=== PATIENT | female | born 1980 | race Caucasian/White ===

== ENCOUNTER 2017-11-10 06:26 | Inpatient (IN) ==
[2017-11-10] MEDS ORDERED: LIDOCAINE 1% (10mg/ml) 2mL INJ PF SDV ID PRN (06:40)
[2017-11-10] MEDS ORDERED: OXYTOCIN DRIP 30 UNIT/500 ML ML IV PRN (06:40)
[2017-11-10] MEDS ORDERED: METHYLERGONOVINE 0.2 MG/ML INJECTION IM PRN (06:40)
[2017-11-10] MEDS ORDERED: CARBOPROST 250 MCG/ML INJECTION IM PRN (06:40)
[2017-11-10] MEDS ORDERED: D5LR 1,000 ML IV PRN (06:40)
[2017-11-10] MEDS ORDERED: ACETAMINOPHEN 500 MG TABLET PO PRN ×2 (06:40→16:46)
[2017-11-10] MEDS ORDERED: CALCIUM CARBONATE Chewable 500mg TABLET PO PRN ×2 (06:40→16:46)
[2017-11-10] MEDS ORDERED: MAG-AL + SIM ORAL LIQUID 30ml PO PRN ×2 (06:40→16:46)
[2017-11-10] MEDS ORDERED: SALINE FLUSH 10ml SYRINGE IV PRN (06:40)
--- OUTSIDE RECORDS SUMMARY | 2017-11-10 06:42 | External Medical Summary | Continuity of Care Document ---
:1980 Author Organization [facility] Address [address] [place], [place] [id number] Phone Support Name Relationship Address Phone Manuel Sam spouse [address] [facility] [phone] [place] [address] Allergies, Adverse Reactions, Alerts Substance Reaction Severity Status No Known Drug Allergies Unknown Active Medications Medication Instructions Dosage Effective Dates Status Comments (start - stop) ONE DAILY take 1 by Oral route - Active (unknown strength) every day Problems Condition Effective Dates (start - stop) Clinical Status Follow-Up, Routine - Supervision of elderly multigravida, - third trimester Maternal care for oth - abnormality and damage, unsp 34 weeks gestation of - Left Breast Lump, Axillary Tail - Supervision of elderly multigravida, - third trimester Encounter for suprvsn of normal - , third trimester 30 weeks gestation of - Supervision of elderly multigravida, - first trimester Pap Smear Screening, Cervix - Encounter for suprvsn of normal - , first trimester 14 weeks gestation of - Supervision of elderly multigravida, - second trimester 19 weeks gestation of - Supervision of elderly multigravida, - second trimester 24 weeks gestation of - Supervision of elderly multigravida, - second trimester Encounter for suprvsn of normal - , second trimester 26 weeks gestation of - Supervision of elderly multigravida, - second trimester 19 weeks gestation of - Supervision of elderly multigravida, - second trimester Encounter for suprvsn of normal - , second trimester 18 weeks gestation of - Supervision of elderly multigravida, - third trimester Maternal care for oth - abnormality and damage, unsp 34 weeks gestation of - Supervision of elderly multigravida, - third trimester Maternal care for oth - abnormality and damage, unsp 35 weeks gestation of - Supervision of elderly multigravida, - third trimester Maternal care for oth - abnormality and damage, unsp 33 weeks gestation of - Supervision of elderly multigravida, - third trimester Maternal care for oth - abnormality and damage, unsp 33 weeks gestation of - Supervision of elderly multigravida, - third trimester 36 weeks gestation of - Supervision of elderly multigravida, - third trimester Maternal care for oth - abnormality and damage, unsp 35 weeks gestation of - Encounter for test, result - positive Encounter for suprvsn of normal - , third trimester 36 weeks gestation of - History of chlamydia infection Active Procedures Procedure Date OB Visit No Charge Results Test Name Date and Time Measure Units Reference Range Abnormal Flag Comments Unknown Advance Directives Directive Yes / No Effective Date File Name Unknown Encounters Encounter Practice Location Reason(s) Diagnoses Date Provider Care Team Description For Visit Members Danika [place] Supervision of Doe In Womens elderly 2-201 [facility] [place], multigravida, 8 700 [address] third [email or web address] Medical 1522, weeks gestation [facility], of [place], 120, [id number], [place], tel:[phone] , [place]. tel:[phone] Danika [place] Encounter for Aug-0 Doe In Womens Ultrasound suprvsn of normal 2-201 [facility] [place], , third 8 700 [address] [email or web address] weeks Medical 1522, gestation of [facility], Jin [place], 120, [id number], [place], tel:[phone] , [place]. tel:[phone] Danika [place] Supervision of Sep-2 Doe In Womens elderly 5-201 [facility] [place], multigravida, 8 700 [address] third Medical 1522, trimesterMaternal [facility], care for oth Jin [place], abnormality 120, [id number], and [place], [place] unsp35 weeks [place], tel:[phone] gestation of [id number] , [place]. tel: [phone] Danika [place] Supervision of Sep-2 Doe In Womens Ultrasound elderly 5-201 [facility] [place], multigravida, 8 700 [address] third Medical 1522, trimesterMaternal [facility], care for oth [place], abnormality 120, [id number], and [place], [place] unsp35 weeks [place], tel:[phone] gestation of [phone] [id number] , [place]. tel: [phone] Danika [place] Supervision of Sep-1 Doe In Womens elderly -201 [facility] [place], multigravida, 8 700 [address] third Medical 1522, trimesterMaternal [facility], care for oth [place], abnormality 120, [id number], and [place], [place] unsp34 weeks [place], tel:[phone] gestation of [phone] , [place]. tel: [phone] Danika [place] Supervision of Sep-1 Doe In Womens Ultrasound elderly 9-201 [facility] [place], multigravida, 8 700 [address] third Medical 1522, trimesterMaternal [facility], care for oth [place], abnormality 120, [id number], and [place], [place] unsp34 weeks [place], tel:[phone] gestation of [phone] [id number] , [place]. tel: [phone] Danika [place] Supervision of Sav-0 Doe In Womens elderly 9-201 [facility], multigravida, 8 700 PO Box third Medical 1522, [facility] [place], abnormality 120, , and [place], [place] unsp33 weeks [place], tel:[phone] gestation of [phone] , [place]. tel: [phone] Danika [place] Supervision of Sav-0 Doe In Womens Ultrasound elderly 9-201 [facility], multigravida, 8 700 PO Box third Medical 1522, [facility] [place], abnormality 120, , and [place], [place] unsp33 weeks [place], tel:[phone] gestation of [phone] , [place]. tel: [phone] Danika [place] Left Breast Lump, Richard-2 Doe In Womens Axillary 1-201 [facility], TailSupervision [address] [facility] Medical 1522, [facility] [place], trimesterEncounte 120, [id number], r for suprreymundo of [place], [place] normal , [place], tel:[phone] third [id number] [phone] [id number] weeks gestation , [place]. of tel: [phone] Danika [place] Supervision of May-2 Doe In Womens elderly 2-201 [facility], multigravida, 8 700 PO Box second Medical 1522, trimesterEncounte [facility], r for suprvsn of [place], normal , 120, [id number], second [place], [email or web address] weeks [place], tel:[phone] gestation of [phone] [id number] , [place]. tel: [phone] Danika [place] Supervision of May-0 Doe In Womens elderly 8-201 [facility] [place], multigravida, 8 700 PO Box second Medical 1522, [email or web address] weeks [facility], gestation of Jin Woodard, 120, , [place], tel:[phone] , [place]. tel:[phone] Danika [place] Supervision of Apr-0 Doe In Womens elderly 5-201 [facility] [place], multigravida, 8 700 PO Box second Medical 1522, [email or web address] weeks [facility], gestation of Jin [place], 120, , [place], tel:[phone] , [place]. tel:[phone] Danika [place] Supervision of Apr-0 Doe In Womens Ultrasound elderly 5- [facility] [place], multigravida, 8 700 PO Box second Medical 1522, [email or web address] weeks [facility], gestation of Jin [place], 120, , [place], tel:[phone] , [place]. tel:[phone] Danika [place] Supervision of Mar-2 Doe In Womens elderly 7-201 [facility] [place], multigravida, 8 700 PO Box second Medical 1522, trimesterEncounte [facility], r for suprvsn of [place], normal , 120, , second [place], [place] [email or web address] weeks [place], tel:[phone] gestation of [phone] , [place]. tel: [phone] Danika [place] Supervision of Feb-2 Doe In Womens elderly 6-201 [facility] [place], multigravida, 8 700 PO Box first Medical 1522, trimesterPap [facility], Smear Screening, Jin [place], CervixEncounter 120, , for suprvsn of [place], [place] normal , [place], tel:[phone] first [email or web address] [phone] [id number] weeks gestation , [place]. of tel:[phone] Danika [place] Sav-2 Doe In Womens Follow-Up, [facility] [place], Routine 6 700 PO Box Medical 1522, [facility], [place], 120, [id number], [place], [place], tel:[phone] , [place]. tel: [phone] Danika [place] Apr-2 Doe Referring In Womens 1-201 [facility] Provider: Health [place], 6 700 [facility] PO Box Medical Doe L, 1522, [place] [id number] [address] Trav, [facility] [place], 120, [place] [id number], [place], [facility] 120, [place], [place], tel:[phone] [place], , [place]. [id number]. tel: tel: [phone] Associates [facility] Mar-0 Doe In Womens 3-201 [facility] [place], 6 700 PO Box Medical 1522, [place] [address] Trav, [facility] [place], 120, [id number], [place], [place], tel:[phone] , [place]. tel: [phone] Danika [place] History of Feb-0 Doe In Womens chlamydia 1-201 [facility] [place], infection 6 700 PO Box Medical 1522, [place] [address] Trav, [facility] [place], 120, [id number], [place], [place], tel:[phone] , [place]. tel: [phone] Danika [place] Dec-2 Doe In Womens 1-201 [facility] [place], 5 700 PO Box Medical 1522, [place] [address], [facility] [place], 120, [id number], [facility] [place], tel:[phone] , [place]. tel: [phone] Danika [place] Encounter for Nov-2 Doe In Womens test, 5-201 [facility] [place], result positive 5 700 PO Box Medical 1522, [place] [address] Trav, [facility] [place], 120, [id number], [place], tel:[phone] , [place]. tel: [phone] Danika [place] Richard-2 Kerr In Womens 9-201 [facility] [place], 1 700 PO Box Medical 1522, [place] [address] Trav [facility], 120, [id number], [facility] [place], tel:[phone] [id number] , [place]. tel: [phone] Family History Family Member Diagnosis Age At Onset No family history of Stroke No family history of Colon Cancer No family history of Osteoporosis Paternal Grandfather Diabetes mellitus No family history of Kidney Disease No family history of Epilepsy No family history of Venous Thrombosis Maternal Grandmother Cardiovascular Disease No family history of Ovarian Cancer Cousin Breast Cancer No family history of Lung Disease Maternal Grandmother Hypertension Mother Thyroid Cancer No family history of Pulmonary Embolism No family history of Uterine Cancer Immunizations Vaccine Date Status Comments Tdap completed Source: New Immunization Record Influenza, injectable, completed Source: New Immunization Record quadrivalent, preservative free, 3 yrs or older Payers Payer name Insurance type Covered libertarian ID Authorization(s) [employer] [place] [employer] - Medicaid [place] [id number] [employer] [place] [employer] - Medicaid [place] [id number] [employer] [place] [employer] - Medicaid [place] [id number] Social History Type Description Quantity Date Captured Alcohol Use Details No Caffeine Use Details Unknown Tobacco Use Status Unknown Smoking Status Never smoker Vital Signs Date / Height Weight BMI Pulse Blood Temperature Respiratory Body Head BMI Time: Rate Pressure Rate Surface Circumference percentile Area 153.10 27.1 lbs 2 mm[Hg] 1:32 kg/m PM eter (2) Chief Complaint And Reason For Visit Unknown Chief Complaint And Reason For Visit Reason For Referral Reason For Referral Unknown Plan Of Care Date Type Action Status Appointment Odalis Sam BOOKED Appointment Odalis Sam BOOKED Appointment Odalis Sam BOOKED Appointment Odalis Sam BOOKED Appointment Odalis Sam BOOKED Future Order: Radiology Order OB Detailed Complete Ultrasound Ordered ([id number]) Future Order: Radiology Order Biophysical Profile without NST Ordered ([id number]) Future Order: Radiology Order Ultrasound OB Follow-up ([id number]) Ordered Future Order: Radiology Order Biophysical Profile without NST Ordered ([id number]) Future Order: Radiology Order Biophysical Profile without NST Ordered ([id number]) Future Order: Lab Order Pap Smear With HPV Reflex If ASCUS Ordered ([id number]) Future Order: Radiology Order Biophysical Profile without NST Ordered ([id number]) Date Type Problem Goal Intervention Status Start Date Unknown. History Of Present Illness Encounter Date Complaint History Of Present Illness This patient has no known history of present illness Functional Status Encounter Date Functional Assessment Cognitive Assessment Unknown Medications Administered Medication Instructions Dosage Effective Dates (start - stop) Status Comments Drug Treatment Unknown Instructions Date Instruction Additional Information HIV and other routine tests risk factors identified by history anticipated course of care nutrition and weight gain counseling, special diet toxoplasmosis precautions (cats / raw meat) sexual activity exercise indications for ultrasound influenza vaccine environmental / work hazards travel tobacco (ask, advise, assess, assist and arrange) alcohol illicit / recreational drugs use of any medications (including supplements, vitamins, herbs, OTC drugs) smoking counseling domestic violence seat belt use childbirth classes / hospital facilities hospital registration genetic testing Zika virus assessment & precautions Giving encouragement to exercise Related to Body mass index 25.0-25.9 environmental / work hazards travel tobacco (ask, advise, assess, assist and arrange) alcohol illicit / recreational drugs use of any medications (including supplements, vitamins, herbs, OTC drugs) smoking counseling domestic violence seat belt use childbirth classes / hospital facilities hospital registration genetic testing new ob handbook HIV and other routine tests risk factors identified by history anticipated course of care nutrition and weight gain counseling, special diet toxoplasmosis precautions (cats / raw meat) sexual activity exercise indications for ultrasound influenza vaccine
--- OUTSIDE RECORDS SUMMARY | 2017-11-10 06:42 | External Medical Summary | Continuity of Care Document ---
:1980 Author Organization [facility] Address [address] [place], [place] [id number] Phone Support Name Relationship Address Phone Manuel Sam spouse [address] [facility] [phone] [place] [address] Allergies, Adverse Reactions, Alerts Substance Reaction Severity Status No Known Drug Allergies Unknown Active Medications Medication Instructions Dosage Effective Dates Status Comments (start - stop) ONE DAILY take 1 by Oral route - Active (unknown strength) every day Problems Condition Effective Dates (start - stop) Clinical Status Follow-Up, Routine - Maternal care for oth - abnormality and damage, unsp 35 weeks gestation of - Supervision of elderly multigravida, - third trimester Left Breast Lump, Axillary Tail - Supervision [...] for oth - abnormality and damage, unsp 37 weeks gestation of - Supervision of elderly multigravida, - third trimester Maternal care for oth - abnormality and damage, unsp 37 weeks gestation of - Supervision of elderly [...] Measure Units Reference Range Abnormal Flag Comments Panel Description: Strep Gp B Culture Strep Gp B Negative Negative Centers for Disease Control Culture 16:09:00 and Prevention (CDC) and [place] Congressof Obstetricians and Gynecologists (ACOG) guidelines for prevention ofperinatal group B streptococcal (GBS) disease specify co-collection ofa vaginal and rectal swab specimen to maximize sensitivity of GBSdetection. Per the CDC and ACOG, swabbing both the lower vagina andrectum substantially increases the yield of detection compared withsampling the vagina alone. .Penicillin G, ampicillin, or cefazolin are indicated for intrapartumprophylaxis of GBS colonization. Reflex susceptibilitytesting should be performed prior to use of clindamycin only on GBSisolates from penicillin-allergic women who are considered a high riskfor anaphylaxis. Treatment with vancomycin without additional testingis warranted if resistance to clindamycin is noted. Advance Directives Directive Yes / No Effective Date File Name Unknown Encounters Encounter Practice Location Reason(s) Diagnoses Date Provider Care Team Description For Visit Members Danika [place] Supervision of Oct-0 Doe Referring In Womens elderly Gale. Provider: amie Leonardoavinicole, 8 700 Gale [address] third Medical Doe L, 1522, [facility] [address] [place] [address], [facility] Jin Woodard, abnormality 120, [place] , and Billy haley [facility] 120, [place] unsp37 weeks Billy KAPLAN, tel:[phone] gestation of [phone] [place], , [place]. [id number]. tel: tel: [phone] Danika [place] Supervision of Aug-0 Doe In Womens Ultrasound elderly 9- Gale. amie Leonardoavida, 8 700 PO Box third Medical 1522, trimesterMaternal [facility], [facility] Jin Woodard, abnormality 120, [id number], and Billy haley, unsp37 weeks EUSEBIO, tel:[phone] gestation of [phone] , [place]. tel: [phone] Danika [place] Supervision of Aug-0 Doe In Womens elderly 2- Gale. margarito Leonardogravida, 8 700 PO Box third [email or web address] Medical 1522, weeks gestation [facility], of Jin Woodard, 120, [id number], [place], tel:[phone] , [place]. tel:[phone] Danika [place] Encounter for Aug-0 Doe In Womens Ultrasound suprvsn of normal 2-201 Gale. Health PA, , third 8 700 PO Box [email or web address] weeks Medical 1522, gestation of [facility], Jin Woodard, 120, , [place], tel:[phone] , [place]. tel: [phone] Danika [place] Maternal care for Sav-2 Doe In Womens oth 5-201 Gale. Health PA, abnormality and 8 700 PO Box damage, unsp35 Medical 1522, weeks gestation [facility], of Jin Woodard, pregnancySupervis 120, [id number], ion of elderly [place]rav[place], [place], tel:[phone] third trimester [phone] , [place]. tel: [phone] Danika [place] Supervision of Sav-2 Doe In Womens Ultrasound elderly 5-201 Gale. Health PA, multigravida, 8 700 PO Box third Medical 1522, trimesterMaternal [facility], care for oth Jin Woodard, abnormality 120, , and Billy haley, [place] unsp35 weeks [place], tel:[phone] gestation of [phone] , [place]. tel: [phone] Danika [place] Supervision of Sav-1 Doe In Womens elderly 9-201 Gale. Health PA, multigravida, 8 700 PO Box third Medical 1522, trimesterMaternal [facility], care for oth Jin Woodard, abnormality 120, , and Billy haley, [place] unsp34 weeks [place], tel:[phone] gestation of [id number] , [place]. tel: [phone] Danika [place] Supervision of Sav-1 Doe In Womens Ultrasound elderly 9-201 Gale. Health PA, multigravida, 8 700 PO Box third Medical 1522, [facility]Maternal [facility], [facility] for ot Jin Woodard, abnormality 120, [id number], and [place] haley, [place] unsp34 weeks [place], tel:[phone] gestation of [phone] , [place]. tel: [phone] Danika [place] Supervision of Sav-0 Doe In Womens elderly 9-201 Gale. Health PA, multigravida, 8 700 PO Box [facility] 1522, [facility] care for ot Jin Woodard, abnormality 120, [id number], and damageBilly, [place] unsp33 weeks [place], tel:[phone] gestation of [phone] , [place]. tel: [phone] Danika [place] Supervision of Sav-0 Doe In Womens Ultrasound elderly 9-201 Gale. Health PA, multigravida, 8 700 PO Box third Medical 1522, [facility], care for ot Jin Woodard, abnormality 120, , and Billy haley, [place] unsp33 weeks [place], tel:[phone] gestation of [phone] , [place]. tel: [phone] Danika [place] Left Breast Lump, Richard-2 Doe In Womens Axillary 1-201 Gale. Health PA, TailSupervision 8 700 PO Box of [facility] 1522, multigravida, [facility], [facility] Jin Woodard, trimesterEncounte 120, [id number], r for abiola of [place], [place] normal , [place], tel:[phone] third [id number] [phone] [id number] weeks gestation , [place]. of tel: [phone] Danika [place] Supervision of July-2 Doe In Womens elderly 2-201 Gale. Health PA, multigravida, 8 700 PO Box second Medical 1522, [facility], r for suprvsn of Jin Woodard, normal , 120, [id number], second [place], [place] [id number] weeks [place], tel:[phone] gestation of [phone] , [place]. tel: [phone] Danika [place] Supervision of May-0 Doe In Womens elderly 8-201 Gale. Health PA, multigravida, 8 700 PO Box second Medical 1522, [email or web address] weeks [facility], gestation of Jin Woodard, 120, , [place], tel:[phone] , [place]. tel:[phone] Danika [place] Supervision of Apr-0 Doe In Womens elderly 5-201 Gale. Health PA, multigravida, 8 700 PO Box second Medical 1522, [email or web address] weeks [facility], gestation of Jin Woodard, 120, , [place], tel:[phone] , [place]. tel:[phone] Danika [place] Supervision of Apr-0 Doe In Womens Ultrasound elderly 5-201 Gale. Health PA, multigravida, 8 700 PO Box second Medical 1522, [email or web address] weeks [facility], gestation of Jin Woodard, 120, , [place], tel:[phone] , [place]. tel:[phone] Danika [place] Supervision of May-2 Doe In Womens elderly 7-201 Gale. Health PA, multigravida, 8 700 PO Box second Medical 1522, trimesterEncounte [facility], for suprvsn of Jin Woodard, normal , 120, , second [place], [place] [id number] weeks [place], tel:[phone] gestation of [id number] , [place]. tel:[phone] Danika [place] Supervision of Fe-2 Deo In Womens elderly 6-201 Gale. Health PA, multigravida, 8 700 PO Box first Medical 1522, trimesterPap [facility], Smear Screening, Jin Woodard, CervixEncounter 120, , for suprvsn of [place], [place] normal , [place], tel:[phone] first [id number] [phone] [id number] weeks gestation , [place]. of tel:[phone] Danika [place] Sav-2 Doe In Womens Follow-Up, 8- Gale. Health PA, Routine 6 700 PO Box Medical 1522, [place] Dr Trav, [facility] [place], 120, [id number], [place], tel:[phone] , [place]. tel: [phone] Danika [place] Apr-2 Doe Referring In Womens 1-201 Gale. Provider: Health [facility], 6 700 Gale PO Box Medical Doe L, 1522, [place] [address], [facility] [place], 120, [place] [id number], Billy [facility] 120, [place], [place], tel:[phone] [place], , [place]. [id number]. tel: tel: [phone] Associates Billy Mar-0 Doe In Womens 3-201 Gale. Health CHICA, 6 700 PO Box Medical 1522, [place] Dr Trav, [facility] [place], 120, [id number], [place], [place], tel:[phone] , [place]. tel: [phone] Danika [place] History of Feb-0 Doe In Womens chlamydia 1-201 Gale. Health PA, infection 6 700 PO [place] [facility] 1522, [place] Dr Trav, [facility] [place], 120, [id number], [place], tel:+ [phone] , [place]. tel: [phone] Danika [place] Dec-2 Doe In Womens 1-201 Gale. Health [facility]ICA, 5 700 PO [place] [facility] 1522, [place] Dr Trav, [facility] [place], 120, [id number], [place], tel:+ [phone] , [place]. tel: [phone] Danika [place] Encounter for Nov-2 Doe In Womens test, 5- Gale. Health PA, result positive 5 700 PO Box Medical 1522, [place] [address] Trav, [facility] [place], 120, [id number], [place], tel:[phone] , [place]. tel: [phone] Danika [place] Richard-2 Kerr In Womens 9-201 Daily. [facility], 1 700 [facility] [address] [address] Trav, [facility], 120, [id number], [place], tel:[phone] , [place]. tel: [phone] Family History Family Member Diagnosis Age At [...] Comments Tdap completed Source: New Immunization Record Tdap completed Source: New Immunization Record Influenza, injectable, completed Source: New Immunization Record quadrivalent, preservative free, 3 yrs or older Payers Payer name Insurance type Covered green party ID Authorization(s) [employer] [place] [employer] - [place] [id number] [employer] - Medicaid [place] [id number] [employer] - Medicaid [place] [id number] [employer] - Medicaid [place] [id number] Social History Type Description Quantity Date Captured Alcohol Use Details No Caffeine Use Details Unknown Tobacco Use Status Unknown Smoking Status Never smoker Vital Signs Date / Height Weight BMI Pulse Blood Temperature Respiratory Body Head BMI Time: Rate Pressure Rate Surface Circumference percentile Area Unknown Chief Complaint And Reason For Visit Unknown Chief Complaint And Reason For Visit Reason For Referral Reason For Referral Unknown Plan Of Care Date Type Action Status Appointment Odalis Sam BOOKED Appointment Odalis Sam BOOKED Appointment Odalis Sam BOOKED Appointment Odalis Sam BOOKED Future Order: Radiology Order OB Detailed Complete Ultrasound Ordered ([id number]) Future Order: Radiology Order Biophysical Profile without NST Ordered ([id number]) Future Order: Radiology Order Ultrasound OB Follow-up ([id number]) Ordered Future Order: Radiology Order Biophysical Profile without NST Ordered ([id number]) Future Order: Radiology Order Ultrasound OB Follow-up ([id number]) Ordered Future Order: Radiology Order Biophysical Profile without NST Ordered ([id number]) Future Order: Radiology Order Biophysical Profile without NST Ordered ([id number]) Future Order: Lab Order Pap Smear With HPV Reflex If ASCUS Ordered ([id number]) Future Order: Radiology Order Biophysical Profile without NST Ordered ([id number]) Date Type Problem Goal Intervention Status Start [...]
--- OUTSIDE RECORDS SUMMARY | 2017-11-10 06:42 | External Medical Summary | Continuity of Care Document ---
:1980 Author Organization [facility] Address [address] [place], [place] [id number] Phone Support Name Relationship Address Phone Manuel Sam spouse [address] [facility] [phone] [place] [address] Allergies, Adverse Reactions, Alerts Substance Reaction Severity [...] of chlamydia infection Active Procedures Procedure Date biophys prfl w/o nstress test Results Test Name Date and Time Measure Units Reference Range Abnormal Flag Comments Unknown Advance Directives Directive Yes / No Effective Date File Name Unknown Encounters Encounter Practice Location Reason(s) Diagnoses Date Provider Care Team Description For Visit Members Associates Billy Supervision of Doe In Womens elderly 2-201 Gale. [facility] PA, multigravida, 8 700 PO Box third Medical 1522, weeks gestation [facility], of Jin Woodard [place], 120, [id number], [place], tel:[phone] , [place]. tel:[phone] Danika [place] Encounter for Aug-0 Doe In Womens Ultrasound suprvsn of normal 2-201 Gale. Health PA, , third 8 700 PO Box [email or web address] weeks Medical 1522, gestation of [facility], Jin Woodard, 120, [id number], [place], tel:[phone] , [place]. tel:[phone] Danika [place] Supervision of Sep-2 Doe In Womens elderly 5-201 Gale. Health PA, multigravida, 8 700 PO Box third Medical 1522, trimesterMaternal [facility], care for oth Jin Woodard, abnormality 120, [id number], and [place] haley, [place] unsp35 weeks [place], tel:[phone] gestation of [phone] , [place]. tel: [phone] Danika [place] Supervision of Sep-2 Doe In Womens Ultrasound elderly 5- Gale. Health PA, multigravida, 8 700 PO Box third Medical 1522, trimesterMaternal [facility], care for oth Jin Woodard, abnormality 120, [id number], and [place] h[place], [place] unsp35 weeks [place], tel:[phone] gestation of [phone] , [place]. tel: [phone] Danika [place] Supervision of Sep-1 Doe In Womens elderly - Gale. Health PA, multigravida, 8 700 PO Box third Medical 1522, trimesterMaternal [facility], care for oth Jin Woodard, abnormality 120, [id number], and [place] h[place], [place] unsp34 weeks [place], tel:[phone] gestation of [phone] , [place]. tel:[phone] Danika [place] Supervision of Sep-1 Doe In Womens Ultrasound elderly -201 Gale. Health PA, multigravida, 8 700 PO Box third Medical 1522, trimesterMaternal [facility], care for oth Jin Woodard, abnormality 120, [id number], and [place] h[place], [place] unsp34 weeks [place], tel:[phone] gestation of [id number] , [place]. tel: [phone] Danika [place] Supervision of Sav-0 Doe In Womens elderly 9-201 Gale. Health CHICA, multigravida, 8 700 PO Box third Medical 1522, trimesterMaternal [facility], care for oth Jin Woodard, abnormality 120, , and [place] haley, [place] unsp33 weeks [place], tel:[phone] gestation of [id number] , [place]. tel: [phone] Danika [place] Supervision of Sav-0 Doe In Womens Ultrasound elderly 9- Gale. Health PA, multigravida, 8 700 PO Box third Medical 1522, [facility]naThe [facility], care for oth Jin Woodard, abnormality 120, , and [place] h[place], [place] unsp33 weeks [place], tel:[phone] gestation of [phone] [id number] , [place]. tel: [phone] Danika [place] Left Breast Lump, Richard-2 Doe In Womens Axillary 1-201 Agle. Health CHICA, TailSupervision 8 700 PO Box of [facility] Medical 1522, [facility], third Jin Woodard, trimesterEncounte 120, [id number], r for suprmichaeln of [place], [place] normal , [place], tel:[phone] third [id number] [phone] [id number] weeks gestation , [place]. of tel: [phone] Danika [place] Supervision of May-2 Doe In Womens elderly 2-201 Gale. Health CHICA, multigravida, 8 700 PO Box second Medical 1522, trimesterEncdoctors hospital [facility], r for suprvsn of Jin Woodard, normal , 120, [id number], second [place], [place] [id number] weeks [place], tel:[phone] gestation of [phone] [id number] , [place]. tel: [phone] Danika [place] Supervision of May-0 Doe In Womens elderly 8-201 Gale. Health PA, multigravida, 8 700 PO Box second Medical 1522, [email or web address] weeks [facility], gestation of Jin Woodard, 120, , [place], tel:[phone] , [place]. tel:[phone] Danika [place] Supervision of Apr-0 Doe In Womens elderly 5-201 Gale. Health PA, multigravida, 8 700 PO Box second Medical 1522, [email or web address] weeks [facility], gestation of Jin Woodard, 120, , [place], tel:[phone] , [place]. tel:[phone] Danika [place] Supervision of Apr-0 Doe In Womens Ultrasound elderly 5-201 Gale. Health PA, multigravida, 8 700 PO Box second Medical 1522, [email or web address] weeks [facility], gestation of Jin Woodard, 120, , [place], tel:[phone] , [place]. tel:[phone] Danika [place] Supervision of Mar-2 Doe In Womens elderly 7-201 Gale. Health PA, multigravida, 8 700 PO Box second Medical 1522, trimesterEncounte [facility], r for suprvsn of Jin Woodard, normal , 120, , second [place], [place] [id number] weeks [place], tel:[phone] gestation of [phone] [id number] , [place]. tel:[phone] Danika [place] Supervision of Feb-2 Doe In Womens elderly 6-201 Gale. Health PA, multigravida, 8 700 PO Box first Medical 1522, trimesterPap [facility], Smear Screening, Jin Woodard, CervixEncounter 120, , for suprvsn of [place], [place] normal , [place], tel:[phone] first [id number] [phone] [id number] weeks gestation , [place]. of tel:[phone] Danika [place] Sav-2 Doe In Womens Follow-Up, - Gale. Health PA, Routine 6 700 PO Box Medical 1522, [place] [address] Trav, [facility] [place], 120, [id number], [place], [place], tel: [phone] , [place]. tel: [phone] Danika [place] Apr-2 Doe Referring In Womens 1-201 Gale. Provider: Health [facility]ICA, 6 700 Gale PO Box Medical Doe L, 1522, [place] [address] [address] Trav, [facility] [place], 120, [place] [id number], Billy [facility] 120, [place], [place], tel: [phone] [place], , [place]. [id number]. tel: tel: [phone] Associates Billy Mar-0 Doe In Womens 3-201 Gale. Health PA, 6 700 PO Box Medical 1522, [address] [address] Trav, [facility] [place], 120, [id number], [place], [place], tel: [phone] , [place]. tel: [phone] Danika [place] History of Feb-0 Doe In Womens chlamydia 1-201 Gale. Health PA, infection 6 700 PO [place] [facility] 1522, [address] [address] Trav, [facility] [place], 120, [id number], [place], tel:+ [phone] , [place]. tel: [phone] Danika [place] Dec-2 Doe In Womens 1-201 Gale. Health PA, 5 700 PO Box Medical 1522, [address] [address] Trav, [facility] [place], 120, [id number], [place], tel:[phone] , [place]. tel: [phone] Danika [place] Encounter for Nov-2 Doe In Womens test, 5-201 Gale. Health PA, result positive 5 700 PO Box Medical 1522, [address] [address] Trav, [facility] [place], 120, [id number], [place], [place], tel:[phone] , [place]. tel: [phone] Danika [place] Richard-2 Kerr In Womens 9-201 Daily. Health PA, 1 700 PO Box Medical [address] [address]avi [address] [place], 120, [id number], [facility] [place], tel:[phone] [phone] , [place]. tel: [phone] Family History Family Member Diagnosis Age At [...] older Payers Payer name Insurance type Covered alliance party ID Authorization(s) [employer] - Medicaid [place] [id number] [employer] - Medicaid [place] [id number] [employer] - Medicaid [place] [id number] Social History Type Description Quantity Date Captured Unknown Vital Signs Date / Height Weight BMI [...] Odalis Sam BOOKED Future Order: Radiology Order Biophysical Profile without NST Ordered ([id number]) Future Order: Radiology Order OB Detailed Complete Ultrasound Ordered ([id number]) Future Order: Radiology Order Ultrasound OB Follow-up ([id number]) Ordered Future Order: Radiology Order Biophysical Profile without NST Ordered ([id number]) Future Order: Radiology Order Biophysical Profile without NST Ordered ([id number]) Future Order: Lab Order Pap Smear With HPV Reflex If ASCUS Ordered ([id number]) Future Order: Radiology Order Biophysical Profile without NST Ordered ([id number]) Date Type Problem Goal Intervention Status Start [...]
--- OUTSIDE RECORDS SUMMARY | 2017-11-10 06:42 | External Medical Summary | Continuity of Care Document ---
:1980 Author Organization [email or web address] Address [address] [place], [place] [id number] Phone Support Name Relationship Address Phone Manuel Sam spouse [address] [facility] [phone] [place] [address] Allergies, Adverse Reactions, Alerts Substance Reaction Severity [...] damage, unsp 33 weeks gestation of - Left Breast Lump, [...] - Encounter for test, result - positive History of chlamydia infection Active Procedures Procedure Date OB Visit No Charge Results Test Name Date and Time Measure Units Reference Range Abnormal Flag Comments Unknown Advance Directives Directive Yes / No Effective Date File Name Unknown Encounters Encounter Practice Location Reason(s) Diagnoses Date Provider Care Team Description For Visit Members Dainka Cervantes Supervision of Doe In Womens elderly [facility]. [facility], multigravida, 8 700 [address] [facility] 1522, [facility], care for oth Jin Woodard, abnormality 120, [id number], and damageBilly, [place] unsp35 weeks [place], tel:[phone] gestation of [id number] , [place]. tel:[phone] Danika Cervantes Supervision of Doe In Womens Ultrasound elderly 5- [facility], multigravida, 8 700 [address] third [facility] 1522, [facility], care for oth Jin Woodard, abnormality 120, [id number], and [place], [place] unsp35 weeks [place], tel:[phone] gestation of [phone] , [place]. tel: [phone] Associates Billy Supervision of Sav-1 Doe In Womens elderly [facility], multigravida, 8 700 [address] third Medical 1522, [facility] [place], care for oth Jin Woodard, abnormality 120, [id number], and [place] haley, [place] unsp34 weeks [place], tel:[phone] gestation of [id number] , [place]. tel: [phone] Associates [facility] Supervision of Sav-1 Doe In Womens Ultrasound elderly [facility], multigravida, 8 700 [address] third Medical 1522, [facility] [place], care for oth Jin Woodard, abnormality 120, [id number], and [place], [place] unsp34 weeks [place], tel:[phone] gestation of [phone] , [place]. tel: [phone] Danika [place] Supervision of Sav-0 Doe In Womens elderly [facility], multigravida, 8 700 PO [address] third Medical 1522, [facility] [place], care for oth Jin Woodard, abnormality 120, [id number], and [place] haley, [place] unsp33 weeks [place], tel:[phone] gestation of [phone] [phone] , [place]. tel: [phone] [facility] Supervision of Sav-0 Doe In Womens Ultrasound elderly [facility], multigravida, 8 700 [address] third Medical 1522, [facility] [place], care for oth Jin Woodard, abnormality 120, [id number], and [place] haley, [place] unsp33 weeks [place], tel:[phone] gestation of [id number] , [place]. tel: [phone] Danika Cerv[place] Left Breast Lump, Richard-2 Doe In Womens Axillary 1-201 [facility], TailSupervision 8 700 PO Box of elderly Medical 1522, multigravida, [facility], third Jin Woodard, trimesterEncounte 120, [id number], r for suprmichaeln of [place], [place] normal , [place], tel:[phone] third [id number] [phone] [id number] weeks gestation , [place]. of tel: [phone] Danika C[place] Supervision of May-2 Doe In Womens elderly 2-201 [facility], multigravida, 8 700 [address] second Medical 1522, trimesterEncounte [facility], r for suprvsn of Jin Woodard, normal , 120, [id number], second [place], [place] [id number] weeks [place], tel:[phone] gestation of [id number] , [place]. tel: [phone] Danika C[place] Supervision of May-0 Doe In Womens elderly 8-201 [facility], multigravida, 8 700 PO Box second Medical 1522, [email or web address] weeks [facility], gestation of Jin Woodard, 120, , [place], [place], tel:[phone] , [place]. tel: [phone] Danika C[place] Supervision of Apr-0 Doe In Womens elderly 5-201 [facility], multigravida, 8 700 PO Box second Medical 1522, [email or web address] weeks [facility], gestation of Jin Woodard, 120, [id number], [place], tel:[phone] , [place]. tel: [phone] Danika [place] Supervision of Apr-0 Doe In Womens Ultrasound elderly 5-201 [facility], multigravida, 8 700 PO Box second Medical 1522, weeks [facility], gestation of Jin Woodard, 120, [id number], [place], tel:[phone] , [place]. tel: [phone] Danika [place] Supervision of Mar-2 Doe In Womens elderly 7- [facility]. [facility], multigravida, 8 700 [address] Box second Medical 1522, trimesterEncounte [place], r for suprvsn of Jin Woodard, normal , 120, [id number], second [place], [id number] weeks [place], tel:[phone] gestation of [phone] [id number] , [place]. tel: [phone] Danika C[place] Supervision of Feb-2 Doe In Womens elderly 6- [facility], multigravida, 8 700 PO Box first Medical 1522, trimesterPap [facility], Smear Screening, , Jin KAPLAN, CervixEncounter 120, , for suprvsn of [place], normal , [place], tel:[phone] first [id number] [phone] weeks gestation , [place]. of tel: [phone] Danika C[place] Sav-2 Doe In Womens Follow-Up, [facility], Routine 6 700 PO [address] Medical [address], [address], [facility] EUSEBIO, 120, , [place], [place], tel:[phone] , [place]. tel: [phone] Danika C[place] Apr-2 Doe Referring In Womens 1- [facility]ale. Provider: Edilson COTO, 6 700 [place]ale PO Box Medical Doe L, 1522, [place], [facility] Dhiraj [place], 120, [place] , [place] [address], [place]SE[place], [place], tel:[phone] [place], , [place]. [id number]. tel: tel: [phone] Danika C[place] Mar-0 Doe In Womens 3-201 [place]. Edilson COTO, 6 700 PO [address] Medical 15[address], [address] [place], [facility] [place], 120, [id number], [place], [place], tel:[phone] , [place]. tel: [phone] Danika [place] History of Feb-0 Doe In Womens chlamydia 1-201 [facility], infection 6 700 PO Box Medical 15[address], [address], [facility] [place], 120, [id number], [facility] [place], tel:[phone] , [place]. tel:[phone] Associates Billy Dec-2 Doe In Womens 1-201 [facility], 5 700 PO [address] Medical 15[address], [address] [place], [facility] [place], 120, [id number], [facility] [place], tel:[phone] , [place]. tel:[phone] Associates Billy Encounter for Nov-2 Doe In Womens test, [facility], result positive 5 700 PO [address] Medical 15[address], [address], [facility] [place], 120, [id number], [facility] [place], tel:[phone] , [place]. tel: [phone] Danika C[place] Richard-2 Kerr In Womens 9-201 Daily. [facility], 1 700 PO Box Medical 15[address], [address], [facility] [place], 120, [id number], [facility] [place], tel:[phone] , [place]. tel:[phone] Family History Family Member Diagnosis Age At [...] Authorization(s) [employer] - Medicaid [place] [id number] [employer] - Medicaid [place] [id number] [employer] - Medicaid MC [id number] Social History Type Description Quantity Date Captured Alcohol Use Details No Caffeine Use Details Unknown Tobacco Use Status Unknown Smoking Status Never smoker Vital Signs Date / Height Weight BMI Pulse Blood Temperature Respiratory Body Head BMI Time: Rate Pressure Rate Surface Circumference percentile Area 156.60 27.7 107/80 -2018 lbs 4 mm[Hg] 10:26 kg/m AM eter (2) 0 10:21 kg/m AM eter (2) Chief Complaint And Reason For Visit Unknown Chief Complaint And Reason For Visit Reason For Referral Reason For Referral Unknown Plan Of Care Date Type Action Status Appointment Odalis Sam BOOKED Appointment Odalis Sam BOOKED Appointment Flaco, Odalis BOOKED Appointment Flaco, Odalis BOOKED Appointment Odalis Sam BOOKED Appointment Flaco, Odalis BOOKED Appointment Flaco, Odalis BOOKED Appointment Flaco, Odalis BOOKED Appointment Flaco Odalis BOOKED Future Order: Radiology Order OB Detailed Complete Ultrasound Ordered ([id number]) Future Order: Radiology Order Biophysical Profile without NST Ordered ([id number]) Future Order: Radiology Order Ultrasound OB Follow-up ([id number]) Ordered Future Order: Radiology Order Biophysical Profile without NST Ordered ([id number]) Future Order: Radiology Order Biophysical Profile without NST Ordered ([id number]) Future Order: Lab Order Pap Smear With HPV Reflex If ASCUS Ordered ([id number]) Date Type Problem Goal Intervention Status Start [...]
--- OUTSIDE RECORDS SUMMARY | 2017-11-10 06:42 | External Medical Summary | Continuity of Care Document ---
:1980 Author Organization [facility] Address [address] [place], [place] [id number] Phone Support Name Relationship Address Phone Manuel Sam spouse [address] [facility] [phone] [place] [address] Allergies, Adverse Reactions, Alerts Substance Reaction Severity Status No Known Drug Allergies Unknown Active Medications Medication Instructions Dosage Effective Dates Status Comments (start - stop) ONE DAILY take 1 by Oral route - Active (unknown strength) every day azithromycin 500 mg take 1 tablet by 500 MG - No Longer tablet oral route every Active day for 3 days Problems Condition Effective Dates (start - stop) Clinical Status Follow-Up, Routine - Left Breast Lump, Axillary Tail - [...] of chlamydia infection Active Procedures Procedure Date Unknown Results Test Name Date and Time Measure Units Reference Range Abnormal Flag Comments Unknown Advance Directives Directive Yes / No Effective Date File Name Unknown Encounters Encounter Practice Location Reason(s) Diagnoses Date Provider Care Team Description For Visit Members Associates Billy Supervision of Doe In Womens elderly [facility], multigravida, 8 700 [address] third Medical 1522, [facility]th Jin Woodard, abnormality 120, [id number], and damage, [place], [place] unsp35 weeks [place], tel:[phone] gestation of [id number] , [place]. tel:[phone] Danika Cervantes Supervision of Sav-2 Doe In Womens Ultrasound elderly 5- [facility], multigravida, 8 700 [address] third Medical 1522, [facility] [place], care for oth Jin Woodard, abnormality 120, [id number], and [place] haley, [place] unsp35 weeks [place], tel:[phone] gestation of [id number] , [place]. tel: [phone] Danika Cervantes Supervision of Sav-1 Doe In Womens elderly 9- [facility], multigravida, 8 700 [address] third Medical 1522, [facility] [place], care for oth Jin Woodard, abnormality 120, [id number], and sudha [place], [place] unsp34 weeks [place], tel:[phone] gestation of [id number] , [place]. tel: [phone] Danika C[place] Supervision of Sav-1 Doe In Womens Ultrasound elderly - [facility], multigravida, 8 700 PO Box third Medical 1522, [facility] [place], care for oth Jin Woodard, abnormality 120, [id number], and [place] haley, [place] unsp34 weeks [place], tel:[phone] gestation of [id number] , [place]. tel: [phone] Danika Cerv[place] Sav-1 Doe In Womens 1-201 [facility], 8 700 PO Box Medical 1522, [facility] [place], Jin Woodard, 120, [id number], [place], tel:[phone] , [place]. tel: [phone] Danika C[place] Supervision of Sav-0 Doe In Womens elderly 9- [facility], multigravida, 8 700 PO Box third Medical 1522, [facility] [place], care for oth Jin Woodard, abnormality 120, [id number], and Billy haley, [place] unsp33 weeks [place], tel:[phone] gestation of [phone] , [place]. tel: [phone] Danika C[place] Supervision of Sav-0 Doe In Womens Ultrasound elderly 9-201 [facility], multigravida, 8 700 PO Box third Medical 1522, trimesterMaternal [facility], care for oth Jin Woodard, abnormality 120, [id number], and damage, [place], [place] unsp33 weeks [place], tel:[phone] gestation of [phone] , [place]. tel:[phone] Danika C[place] Left Breast Lump, Richard-2 Doe In Womens Axillary 1-201 [facility], TailSupervision 8 700 PO Box of elderly Medical 1522, multigravida, [facility], [facility] Jin Woodard, trimesterEncounte 120, [id number], r for suprvsn of [place], [place] normal , [place], tel:[phone] third [phone] 143521 weeks gestation , [place]. of tel: [phone] Danika [place] Supervision of May-2 Doe In Womens elderly 2-201 [facility], multigravida, 8 700 PO Box second Medical 1522, trimesterEncounte [facility], r for suprvsn of Jin Woodard, normal , 120, [id number], second [place], [place] [id number] weeks [place], tel:[phone] gestation of [id number] , [place]. tel: [phone] Danika [place] Supervision of May-0 Doe In Womens elderly 8-201 [facility], multigravida, 8 700 PO Box second Medical 1522, [email or web address] weeks [facility], gestation of Jin Woodard, 120, [id number], [place], tel:[phone] , [place]. tel:[phone] Danika C[place] Supervision of Apr-0 Doe In Womens elderly 5-201 [facility], multigravida, 8 700 PO Box second Medical 1522, weeks [facility], gestation of Jin Woodard, 120, [id number], [place], tel:[phone] , [place]. tel: [phone] Danika C[place] Supervision of Apr-0 Doe In Womens Ultrasound elderly 5-201 [facility], multigravida, 8 700 PO Box second Medical 1522, [email or web address] weeks [facility], gestation of Jin Woodard, 120, [id number], [place], [place], tel:[phone] , [place]. tel: [phone] Danika C[place] Supervision of May-2 Doe In Womens elderly 7- [facility], multigravida, 8 700 PO Box second Medical 1522, trimesterEncounte [facility], r for suprvsn of Jin Woodard, normal , 120, , second [place], [id number] weeks [place], tel:+ gestation of [phone] [id number] , [place]. tel: [phone] Danika [place] Supervision of Fe-2 Doe In Womens elderly 6- [facility], multigravida, 8 700 PO Box first Medical 1522, trimesterPap [facility], Smear Screening, Jin Woodard, CervixEncounter 120, , for suprvsn of [place], normal , [place], tel: first [id number] weeks gestation , [place]. of tel: [phone] Danika C[place] Sep-2 Doe In Womens Follow-Up, Gale. Edilson COTO, Routine 6 700 PO Box Medical 1522, [address], Jin KAPLAN, 120, [id number], [place], [place], tel: [phone] , [place]. tel: [phone] Danika C[place] Jun-2 Doe Referring In Womens - [facility]ale. Provider: Edilson COTO, 6 700 [place]ale PO Box Medical Doe L, 1522, [place] [address], Jin [place], 120, [place] , Billy [facility] 120, [place], tel:[phone] [place], , [place]. [id number]. tel: tel:+ [phone] Associates Billy Mar-0 Doe In Womens 3-201 [facility], 6 700 PO Box Medical 1522, [address] [place], [facility] [place], 120, [id number], [facility] [place], tel:[phone] , [place]. tel: [phone] Associates Billy History of Feb-0 Doe In Womens chlamydia 1-201 [facility], infection 6 700 PO Box Medical 1522, [address] [place], [facility] [place], 120, [id number], [facility] [place] [place], tel:[phone] , [place]. tel: [phone] Associates Billy Dec-2 Doe In Womens 1-201 [facility], 5 700 PO Box Medical 15[address], [address], [facility] [place], 120, [id number], [facility] [place], tel:[phone] , [place]. tel: [phone] Associates Billy Encounter for Nov-2 Doe In Womens test, 5-201 [facility], result positive 5 700 PO Box Medical 1522, [place] [address], [facility] [place], 120, [id number], [facility] [place], tel:[phone] , [place]. tel: [phone] Associates Billy Richard-2 Kerr In Womens 9-201 Daily. [facility], 1 700 PO Box Medical 1522, [place] [address], [facility] [place], 120, [id number], [facility] [place], tel:[phone] , [place]. tel: [phone] Family History Family Member Diagnosis Age At [...] Cancer Immunizations Vaccine Date Status Comments Tdap Apr-21-2016 completed Source: New Immunization Record Influenza, injectable, completed Source: New Immunization Record quadrivalent, preservative free, 3 yrs or older Payers Payer name Insurance type Covered libertarian ID Authorization(s) [employer] - Medicaid [place] [id number] [employer] - Medicaid [place] [id number] [employer] - Medicaid [place] [id number] Social History Type Description Quantity Date Captured [...] Radiology Order OB Detailed Complete Ultrasound Ordered ([id number]) Future Order: Radiology Order Biophysical Profile without NST Ordered ([id number]) Future Order: Radiology Order Ultrasound OB Follow-up ([id number]) Ordered Future Order: Radiology Order Biophysical Profile without NST Ordered ([id number]) Future Order: Radiology Order Biophysical Profile without NST Ordered ([id number]) Future Order: Lab Order Pap Smear With [...]
--- OUTSIDE RECORDS SUMMARY | 2017-11-10 06:42 | External Medical Summary | Continuity of Care Document ---
:1980 Author Organization [facility] [employer] [facility] Address [address] [place], [place] [address] Phone Support Name Relationship Address Phone Manuel Sam spouse [address] [facility] [phone] [place] [address] Allergies, Adverse Reactions, Alerts Substance Reaction Severity Status No Known Drug Allergies Unknown Active Medications Medication Instructions Dosage Effective Dates Status Comments (start - stop) ONE DAILY take 1 by Oral route - Active (unknown strength) every day Problems Condition Effective Dates (start - stop) Clinical Status Follow-Up, Routine - Maternal care for oth - abnormality and damage, unsp Supervision of elderly multigravida, - third trimester 35 weeks gestation of - Left Breast Lump, [...] third trimester 36 weeks gestation of - Encounter for test, [...] For Visit Members Danika [place] Supervision of Aug-0 Doe Referring In Womens elderly 9-201 Gale. Provider: Edilson COTO multigravinicole, 8 700 Gale PO Box third Medical Doe L, 1522, [facility] [address] [place] [address], care for oth , Jin KAPLAN, abnormality 120, [place] , and [place] haley [facility] 120, [place] unsp37 weeks Billy KAPLAN, tel:+2 gestation of [phone] [place], , [place]. [id number]. tel: tel: [phone] Danika [place] Supervision of Aug-0 Doe In Womens Ultrasound elderly 9-201 Gale. Edilson COTO, multigravida, 8 700 PO Box third Medical 1522, trimesterMaternal [facility], care for oth Jin Woodard, abnormality 120, , and [place], [place] unsp37 weeks [place], tel: gestation of [phone] , [place]. tel: [phone] Danika [place] Supervision of Aug-0 Doe In Womens elderly 2-201 Gale. Edilson COTO, multigravida, 8 700 PO Box third [email or web address] Medical 1522, weeks gestation [facility], of Jin Woodard, 120, [id number], [place], [place], tel:[phone] , [place]. tel: [phone] Danika [place] Encounter for Aug-0 Doe In Womens Ultrasound suprvsn of normal 2-201 Gale. Health [facility], , third 8 700 PO Box [email or web address] weeks Medical 1522, gestation of [facility], Jin Woodard, 120, [id number], [place], tel:[phone] , [place]. tel: [phone] Danika [place] Supervision of Sav-2 Doe In Womens elderly 5-201 Gale. Edilson COTO, multigravida, 8 700 PO Box third Medical 1522, trimesterMaternal [facility], care for oth Jin Woodard, abnormality 120, [id number], and [place] haley, [place] unsp35 weeks [place], tel:[phone] gestation of [phone] [id number] , [place]. tel: [phone] Associates Billy Maternal care for Sav-2 Doe In Womens Ultrasound oth [facility]ale. [facility] PA, abnormality and 8 700 PO Box damage, Medical 1522, unspSupervision [facility], of elderly Jin Woodard, multigravida, 120, [id number], third [id number] [place], [place] weeks gestation [place], tel:[phone] of [phone] , [place]. tel: [phone] Danika [place] Supervision of Sav-1 Doe In Womens elderly [facility]ale. [facility] PA, multigravida, 8 700 PO Box third Medical 1522, trimesterMaternal [facility], care for oth Jin Woodard, abnormality 120, [id number], and [place] haley, [place] unsp34 weeks [place], tel:[phone] gestation of [id number] , [place]. tel: [phone] Danika [place] Supervision of Sav-1 Doe In Womens Ultrasound elderly [facility]. [facility] PA, multigravida, 8 700 PO Box third Medical 1522, trimesterMaternal [facility], care for oth Jin Woodard, abnormality 120, [id number], and [place] haley, [place] unsp34 weeks [place], tel:[phone] gestation of [phone] [phone] , [place]. tel: [phone] Danika [place] Supervision of Sav-0 Doe In Womens elderly Gale. [facility] PA, multigravida, 8 700 PO Box third Medical 1522, trimesterMaternal [facility], care for oth Jin Woodard, abnormality 120, [id number], and [place] haley, [place] unsp33 weeks [place], tel:[phone] gestation of [phone] [phone] , [place]. tel: [phone] Danika [place] Supervision of Sav-0 Doe In Womens Ultrasound elderly 9-201 Gale. Health PA, multigravida, 8 700 PO Box third Medical 1522, trimesterMaternal [facility], care for oth Jin Woodard, abnormality 120, [id number], and damage, [place], [place] unsp33 weeks [place], tel:[phone] gestation of [phone] [phone] , [place]. tel: [phone] Danika [place] Left Breast Lump, Richard-2 Doe In Womens Axillary 1-201 Gale. Health [facility], TailSupervision 8 700 PO Box of elderly Medical 1522, multigravida, [facility], the medical center Jin Woodard, trimesterEncounte 120, , r for suprvsn of [place], [place] normal , [place], tel:[phone] third [id number] weeks gestation , [place]. of tel: [phone] Danika [place] Supervision of July-2 Doe In Womens elderly 2-201 Gale. Health PA, multigravida, 8 700 PO Box second Medical 1522, trimesterEncounte [facility], r for suprvsn of Jin Woodard, normal , 120, [id number], second [place], [place] [email or web address] weeks [place], tel:[phone] gestation of [phone] [id number] , [place]. tel: [phone] Danika [place] Supervision of May-0 Doe In Womens elderly 8-201 Gale. Health [facility], multigravida, 8 700 PO Box second Medical 1522, weeks [facility], gestation of Jin Woodard, 120, [id number], [place], [place], tel:[phone] , [place]. tel: [phone] Danika [place] Supervision of Apr-0 Doe In Womens elderly 5-201 Gale. Health PA, multigravida, 8 700 PO Box second Medical 1522, [email or web address] weeks [facility], gestation of Jin Woodard, 120, [id number], [place], tel:[phone] , [place]. tel: [phone] Danika [place] Supervision of Apr-0 Doe In Womens Ultrasound elderly 5-201 Gale. Health PA, multigravida, 8 700 PO Box second Medical 1522, [email or web address] weeks [place], gestation of Jin Woodard, 120, [id number], [place], [place], tel:[phone] , [place]. tel: [phone] Danika [place] Supervision of Mar-2 Doe In Womens elderly 7-201 Gale. Health PA, multigravida, 8 700 PO Box second Medical 1522, trimesterEncounte [facility], r for suprvsn of Jin Woodard, normal , 120, , second [place], [email or web address] weeks [place], tel:+ gestation of [phone] , [place]. tel: [phone] Danika [place] Supervision of Feb-2 Doe In Womens elderly 6-201 Gale. Health [facility], multigravida, 8 700 PO Box first Medical 1522, trimesterPap [facility], Smear Screening, Jin Woodard, CervixEncounter 120, , for suprvsn of [place], normal , [place], tel: first [phone] weeks gestation , [place]. of tel: [phone] Danika [place] Sav-2 Doe In Womens Follow-Up, Gale. Edilson COTO, Routine 6 700 PO Box Medical 1522, [place] [address] Trav, Jin KAPLAN, 120, , [place], [place], tel:[phone] , [place]. tel: [phone] Danika [place] Apr-2 Doe Referring In Womens -201 Gale. Provider: Edilson COTO, 6 700 Gale PO Box Medical Doe L, 1522, [place] [address], [facility] Dhiraj KAPLAN, 120, [place] [id number], Billy [facility] 120, Billy KAPLAN, tel:[phone] [place], , [place]. [id number]. tel: tel: [phone] Danika C[place] Mar-0 Doe In Womens 3-201 Gale. Health PA, 6 700 PO Box Medical 1522, [place] [address] Trav, [facility] [place], 120, [id number], [facility] [place], tel:[phone] , [place]. tel: [phone] Danika C[place] History of Feb-0 Doe In Womens chlamydia 1-201 Gale. Health PA, infection 6 700 PO Box Medical 1522, [place] [address] Trav, [facility] [place], 120, [id number], [facility] [place], tel:[phone] , [place]. tel: [phone] Associates Billy Dec-2 Doe In Womens 1-201 Gale. Health PA, 5 700 PO Box Medical 1522, [place] [address] Trav, [facility] [place], 120, [id number], [facility] [place], tel:[phone] , [place]. tel: [phone] Associates Billy Encounter for Nov-2 Doe In Womens test, 5-201 Gale. Health PA, result positive 5 700 PO Box Medical 1522, [place] [address] Trav, [facility] [place], 120, [id number], [facility] [place], tel:[phone] , [place]. tel: [phone] Danika C[place] Richard-2 Kerr In Womens 9-201 Daily. Health PA, 1 700 PO Box Medical 1522, [address], [facility] [place], 120, [id number], [facility] [place], tel:[phone] , [place]. tel: [phone] Family History Family Member Diagnosis Age At [...] Authorization(s) [employer] - [place] [id number] [employer] - Medicaid [place] [id number] [employer] - Medicaid [place] [id number] [employer] - Medicaid [place] [id number] Social History Type Description Quantity Date Captured [...] Radiology Order Biophysical Profile without NST Ordered ([id number]) Future Order: Radiology Order OB Detailed Complete Ultrasound Ordered ([id number]) Future Order: Radiology Order Biophysical Profile without NST Ordered ([id number]) Future Order: Radiology Order Ultrasound OB Follow-up ([id number]) Ordered Future Order: Radiology Order Biophysical Profile without NST Ordered ([id number]) Future Order: Radiology Order Ultrasound OB Follow-up ([id number]) Ordered Future Order: Radiology Order Biophysical Profile without NST Ordered ([id number]) Future Order: Lab Order Pap Smear With HPV Reflex If ASCUS Ordered ([id number]) Future Order: Radiology Order Biophysical Profile without NST Ordered ([id number]) Date Type Problem Goal Intervention Status Start [...]
--- OUTSIDE RECORDS SUMMARY | 2017-11-10 06:43 | External Medical Summary | Continuity of Care Document ---
:1980 Author Organization [facility] [email or web address] [facility] Address [address] [place], [place] [address] Phone Support Name Relationship Address Phone Manuel Sam spouse [address] [phone] [place] [address] Allergies, Adverse Reactions, Alerts Substance Reaction Severity Status No Known Drug Allergies Unknown Active Medications Medication Instructions Dosage Effective Dates Status Comments (start - stop) ONE DAILY take 1 by Oral route - Active (unknown strength) every day Problems Condition Effective Dates (start - stop) Clinical Status Follow-Up, Routine - Supervision of elderly multigravida, - second [...] second trimester 19 weeks gestation of - Encounter for test, [...] Billy Supervision of Doe In Womens elderly 5-201 Glae. Health [facility]ICA, multigravida, 8 700 PO Box second Medical 1522, weeks [facility], gestation of Jin Woodard, 120, , [place], [place], tel:[phone] , [place]. tel:[phone] Danika C[place] Supervision of Apr-0 Doe In Womens Ultrasound elderly 5-201 Gale. Health PA, multigravida, 8 700 PO Box second Medical 1522, [email or web address] weeks [facility], gestation of Jin Woodard, 120, , [place], [place], tel:[phone] , [place]. tel:[phone] Danika [place] Supervision of May-2 Doe In Womens elderly 7-201 Gale. Edilson COTO, multigravida, 8 700 PO Box second Medical 1522, trimesterEncounte [facility], r for suprvsn of Jin Woodard, normal , 120, , second [place], [place] [id number] weeks [place], tel:[phone] gestation of [phone] [id number] , [place]. tel: [phone] Danika C[place] Supervision of Fe-2 Doe In Womens elderly 6-201 Gale. Health [facility]ICA, multigravida, 8 700 PO Box first Medical 1522, trimesterPap [facility], Smear Screening, Jin Woodard, CervixEncounter 120, , for suprvsn of [place], [place] normal , [place], tel:+ first [id number] [phone] weeks gestation , [place]. of tel: [phone] Danika [place] Sav-2 Doe In Womens Follow-Up, 8- Gale. Health [facility], Routine 6 700 PO Box Medical 1522, [facility], Jin Woodard, 120, , [place], [place], tel:[phone] , [place]. tel:[phone] Danika [place] Apr-2 Doe Referring In Womens 1-201 Gale. Provider: Edilson COTO, 6 700 Gale PO Box Medical Doe L, 1522, Center [address], [facility] [place], 120, [place] [id number], [place], [facility] 120, [place], [place], tel:[phone] [place], , [place]. [id number]. tel: tel:+ [phone] Associates Billy Mar-0 Doe In Womens 3-201 Gale. Health PA, 6 700 PO [facility] 1522, [address] Trav, [facility] [place], 120, [id number], [place], [place], tel:[phone] , [place]. tel: [phone] Associates Billy History of Feb-0 Doe In Womens chlamydia 1-201 Gale. Health PA, infection 6 700 PO [facility] 1522, [address] Trav, [facility] [place], 120, [id number], [facility] [place], tel:[phone] , [place]. tel: [phone] Associates Billy Dec-2 Doe In Womens 1-201 Gale. Health PA, 5 700 PO [facility] 1522, [address] Trav, [facility] [place], 120, , [facility] [place], tel:[phone] , [place]. tel: [phone] Associates Billy Encounter for Nov-2 Doe In Womens test, 5-201 Gale. Health PA, result positive 5 700 [facility] 1522, [address] Trav, [facility] [place], 120, [id number], [place], [place], tel:+ [phone] , [place]. tel: [phone] Associates Billy Richard-2 Kerr In Womens 9-201 Daily. Health PA, 1 700 PO [facility] 1522, [address] Trav, [facility] [place], 120, [id number], [facility] [place], tel:[phone] , [place]. tel: [phone] Family History Family Member Diagnosis Age At [...] older Payers Payer name Insurance type Covered democrat ID Authorization(s) [employer] - Medicaid [place] [id number] [employer] - Medicaid [place] [id number] [employer] - Medicaid [place] [id number] Social History Type Description Quantity Date Captured Alcohol Use Details No Caffeine Use Details Unknown Tobacco Use Status Unknown Smoking Status Never smoker Vital Signs Date / Height Weight BMI Pulse Blood Temperature Respiratory Body Head BMI Time: Rate Pressure Rate Surface Circumference percentile Area 142.10 25.1 -2018 lbs 7 11:39 kg/m AM eter (2) 142.10 25.1 102/70 -2018 lbs 7 mm[Hg] 11:40 kg/m AM eter (2) Chief Complaint And Reason For Visit Unknown Chief Complaint And Reason For Visit Reason For Referral Reason For Referral Unknown Plan Of Care Date Type Action Status Appointment Odalis Sam BOOKED Future Order: Radiology Order OB Detailed Complete Ultrasound Ordered ([id number]) Future Order: Lab Order Pap Smear With [...]
--- OUTSIDE RECORDS SUMMARY | 2017-11-10 06:43 | External Medical Summary | Continuity of Care Document ---
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 Health PA, multigravida, 8 700 PO Box second Medical 1522, [id number] weeks [facility], gestation of Jin Woodard, 120, , [place], [place], tel:+ [phone] , [place]. tel: [phone] Danika [place] Supervision of Apr-0 Doe In Womens Ultrasound elderly 5-201 Gale. Health PA, multigravida, 8 700 PO Box second Medical 1522, [email or web address] weeks [facility], gestation of Jin Woodard, 120, , [place], [place], tel:+ [phone] , [place]. tel: [phone] Danika [place] Supervision of May-2 Doe In Womens elderly 7- Gale. Health [facility], multigravida, 8 700 PO Box second Medical 1522, trimesterEncounte [facility], r for suprvsn of Jin Woodard, normal , 120, , second [place], [place] [email or web address] weeks [place], tel:+ gestation of [id number] , [place]. tel: [phone] Danika [place] Supervision of Fe-2 Doe In Womens elderly 6- Gale. Health [facility]ICA, multigravida, 8 700 PO Box first Medical 1522, trimesterPap [facility], Smear Screening, Jin Woodard, CervixEncounter 120, , for suprvsn of [place], [place] normal , [place], tel:+ first [id number] [phone] weeks gestation , [place]. of tel: [phone] Danika [place] Sav-2 Doe In Womens Follow-Up, - Gale. Health [facility]ICA, Routine 6 700 PO Box Medical 1522, [facility], Jin Woodard, 120, [id number], [place], [place], tel:[phone] , [place]. tel: [phone] Danika [place] Apr-2 Doe Referring In Womens -201 Gale. Provider: Edilson COTO, 6 700 Gale PO Box Medical Doe L, 1522, Center [facility] Dr Trav, [facility] [place], 120, [place] [id number], [place] [facility] 120, [place], [place], tel:[phone] [place], , [place]. [id number]. tel: tel:+ [phone] Associates Billy Mar-0 Doe In Womens 3-201 Gale. Health PA, 6 700 [facility] 1522, [place] [address] Trav, [facility] [place], 120, [id number], [place], [place], tel:[phone] , [place]. tel: [phone] Associates Billy History of Feb-0 Doe In Womens chlamydia 1-201 Gale. Health PA, infection 6 700 [facility] 1522, [place] [address] Trav, [facility] [place], 120, [id number], [facility] [place], tel:[phone] , [place]. tel: [phone] Associates Billy Dec-2 Doe In Womens 1-201 Gale. Health PA, 5 700 [facility] 1522, [place] [address] Trav, [facility], 120, [id number], [facility] [place], tel:[phone] , [place]. tel: [phone] Associates Billy Encounter for Nov-2 Doe In Womens test, 5-201 Gale. Health PA, result positive 5 700 [facility] 1522, [place] [address] Trav, [facility] [place], 120, [id number], [place], [place], tel:[phone] , [place]. tel: [phone] Associates Billy Richard-2 Kerr In Womens 9-201 Daily. Health PA, 1 700 [facility] 1522, [place] [address] Trav, [facility] [place], 120, [id number], [place], [place], tel:[phone] , [place]. tel: [phone] Family History Family Member Diagnosis Age At [...] Authorization(s) [employer] - Medicaid [place] [id number] [employer] - Medicaid [place] [id number] [employer] - Medicaid [place] [id number] Social History Type Description Quantity Date Captured Alcohol Use Details No Caffeine Use Details Unknown Tobacco Use Status Unknown Smoking Status Never smoker Vital Signs Date / Height Weight BMI Pulse Blood Temperature Respiratory Body Head BMI Time: Rate Pressure Rate Surface Circumference percentile Area 148.60 26.3 105/ lbs 2 mm[Hg] 2:22 kg/m PM eter (2) Chief Complaint And Reason For Visit Unknown Chief Complaint And Reason For Visit Reason For Referral Reason For Referral Unknown Plan Of Care Date Type Action Status Appointment Odalis Sam BOOKED Future Order: Radiology Order OB Detailed Complete Ultrasound Ordered ([id number]) Future Order: Lab Order Pap Smear With [...]
--- OUTSIDE RECORDS SUMMARY | 2017-11-10 06:43 | External Medical Summary | Continuity of Care Document ---
:1980 Author Organization [facility] Address [address] [place], [place] [address] Phone Support Name Relationship Address Phone Manuel Sam spouse [address] [phone] [place] [address] Allergies, Adverse Reactions, Alerts Substance Reaction Severity [...] of chlamydia infection Active Procedures Procedure Date Detailed Compled OB Ultrasound, Single Fetus Results Test Name Date and Time Measure Units Reference Range Abnormal Flag Comments Unknown Advance Directives Directive Yes / No Effective Date File Name Unknown Encounters Encounter Practice Location Reason(s) Diagnoses Date Provider Care Team Description For Visit Members Associates Billy Supervision of Doe In Womens elderly 5-201 Gale. Health PA, multigravida, 8 700 PO Box second Medical 1522, [id number] weeks [facility], gestation of Jin Woodard, 120, , [place], [place], tel:[phone] , [place]. tel: [phone] Danika [place] Supervision of Apr-0 Doe In Womens Ultrasound elderly 5-201 Gale. Health PA, multigravida, 8 700 PO Box second Medical 1522, [id number] weeks [facility], gestation of Jin Woodard, 120, , [place], [place], tel:[phone] , [place]. tel: [phone] Danika [place] Supervision of May-2 Doe In Womens elderly 7- Gale. Health [facility], multigravida, 8 700 PO Box second Medical 1522, trimesterEncounte [facility], r for suprvsn of Jin Woodard, normal , 120, , second [place], [place] weeks [place], tel:+[phone] gestation of [phone] , [place]. tel: [phone] Danika [place] Supervision of Fe-2 Doe In Womens elderly 6- Gale. Health [facility]ICA, multigravida, 8 700 PO Box first Medical 1522, trimesterPap [facility], Smear Screening, Jin Woodard, CervixEncounter 120, , for suprvsn of [place], [place] normal , [place], tel:+ first [id number] [phone] weeks gestation , [place]. of tel: [phone] Danika [place] Sav-2 Doe In Womens Follow-Up, - Gale. Health CHICA, Routine 6 700 PO Box Medical 1522, [facility], Jin Woodard, 120, [id number], [place], [place], tel:[phone] , [place]. tel: [phone] Danika [place] Apr-2 Doe Referring In Womens -201 Gale. Provider: Edilson COTO, 6 700 Gale PO Box Medical Doe L, 1522, Center [facility] Dr Trav, [facility] [place], 120, [place] [id number], [place], [facility] 120, [place], [place], tel:[phone] [place], , [place]. [id number]. tel: tel:+ [phone] Associates Billy Mar-0 Doe In Womens 3-201 Gale. Health PA, 6 700 [facility] 1522, [place] [address] Trav, [facility] [place], 120, [id number], [place], [place], tel:[phone] , [place]. tel: [phone] Associates Billy History of Feb-0 Doe In Womens chlamydia 1-201 Gale. Health PA, infection 6 700 [facility] 1522, [place] [address] Tarv, [facility], 120, [id number], [facility] [place], tel:[phone] , [place]. tel: [phone] Associates Billy Dec-2 Doe In Womens 1-201 Gale. Health PA, 5 700 [facility] 15[address], [place] [address] Trav, [facility], 120, [id number], [facility] [place], tel:[phone] , [place]. tel: [phone] Associates Billy Encounter for Nov-2 Doe In Womens test, 5-201 Gale. Health PA, result positive 5 700 [facility] 1522, [place] [address] Trav, [facility] [place], 120, [id number], [place], [place], tel:[phone] , [place]. tel: [phone] Associates Billy Richard-2 Kerr In Womens 9-201 Daily. Health PA, 1 700 [facility] 1522, [place] [address] Trav, [facility] [place], 120, [id number], [place], [place], tel:[phone] , [place]. tel: [phone] Family History Family Member Diagnosis Age At [...] older Payers Payer name Insurance type Covered constitution party ID Authorization(s) [employer] - Medicaid [place] [id number] [employer] - Medicaid [place] [id number] [employer] - Medicaid [place] [id number] Social History Type Description Quantity Date Captured [...] Radiology Order OB Detailed Complete Ultrasound Ordered ([id number]) Future Order: Lab Order Pap Smear With [...]
--- OUTSIDE RECORDS SUMMARY | 2017-11-10 06:43 | External Medical Summary | Continuity of Care Document ---
:1980 Author Organization [facility] Address [address] [place], [place] [id number] Phone Support Name Relationship Address Phone Manuel Sam spouse [address] [facility] [phone] [place] [address] Allergies, Adverse Reactions, Alerts Substance Reaction Severity [...] of chlamydia infection Active Procedures Procedure Date Ultrasnd preg uterus, flwup/repeat biophys prfl w/o nstress test Results Test Name Date and Time Measure Units Reference Range Abnormal Flag Comments Unknown Advance Directives Directive Yes / No Effective Date File Name Unknown Encounters Encounter Practice Location Reason(s) Diagnoses Date Provider Care Team Description For Visit Members Associates Billy Supervision of Doe In Womens elderly 5-201 [facility], multigravida, 8 700 [address] third Medical 1522, [facility], care for oth Jin Woodard, abnormality 120, [id number], and damage, [place] unsp35 weeks [place], tel:[phone] gestation of [id number] , [place]. tel:[phone] Danika [place] Supervision of Sav-2 Doe In Womens Ultrasound elderly 5- [facility], multigravida, 8 700 PO Box third Medical 1522, [facility], care for oth Jin Woodard, abnormality 120, [id number], and [place], [place] unsp35 weeks [place], tel:[phone] gestation of [id number] , [place]. tel:[phone] Danika [place] Supervision of Sav-1 Doe In Womens elderly 9- [facility], multigravida, 8 700 PO Box third Medical 1522, [facility], care for oth Jin Woodard, abnormality 120, [id number], and [place], [place] unsp34 weeks [place], tel:[phone] gestation of [phone] , [place]. tel: [phone] Danika [place] Supervision of Sav-1 Doe In Womens Ultrasound elderly - [facility], multigravida, 8 700 PO Box third Medical 1522, [facility], care for oth Jin Woodard, abnormality 120, [id number], and [place], [place] unsp34 weeks [place], tel:[phone] gestation of [phone] , [place]. tel: [phone] Danika [place] Supervision of Sav-0 Doe In Womens elderly - [facility], multigravida, 8 700 PO Box third Medical 1522, [facility], care for oth Jin Woodard, abnormality 120, [id number], and [place], [place] unsp33 weeks [place], tel:[phone] gestation of [phone] [id number] , [place]. tel:[phone] Danika [place] Supervision of Sav-0 Doe In Womens Ultrasound elderly - [facility], multigravida, 8 700 PO Box third Medical 1522, [facility], care for oth Jin Woodard, abnormality 120, [id number], and damage, [place], [place] unsp33 weeks [place], tel:[phone] gestation of [phone] [id number] , [place]. tel:[phone] Danika [place] Left Breast Lump, Richard-2 Doe In Womens Axillary 1-201 [facility], TailSupervision 8 700 PO Box of elderly Medical 1522, multigravida, [facility], third Jin Woodard, trimesterEncounte 120, , r for suprmichaeln of [place], normal , [place], tel:[phone] third [phone] [id number] weeks gestation , [place]. of tel: [phone] Danika [place] Supervision of May-2 Doe In Womens elderly 2-201 [facility], multigravida, 8 700 PO Box second Medical 1522, trimesterEncounte [facility], r for suprvsn of Jin Woodard, normal , 120, , second [place], [id number] weeks [place], tel:[phone] gestation of [id number] , [place]. tel:[phone] Danika [place] Supervision of May-0 Doe In Womens elderly 8-201 [facility], multigravida, 8 700 PO Box second Medical 1522, [email or web address] weeks [facility], gestation of Jin Woodard, 120, , [place], tel:[phone] , [place]. tel: [phone] Danika [place] Supervision of Apr-0 Doe In Womens elderly 5-201 [facility], multigravida, 8 700 PO Box second Medical 1522, [email or web address] weeks [facility], gestation of Jin Woodard, 120, , [place], [place], tel:[phone] , [place]. tel:[phone] Danika [place] Supervision of Apr-0 Doe In Womens Ultrasound elderly 5-201 [facility], multigravida, 8 700 PO Box second Medical 1522, [email or web address] weeks [facility], gestation of Jin Woodard, 120, [id number], [place], [place], tel:[phone] , [place]. tel: [phone] Danika [place] Supervision of May-2 Doe In Womens elderly 7- [facility], multigravida, 8 700 PO Box second Medical 1522, trimesterEncounte [facility], r for suprvsn of Jin Woodard, normal , 120, , second [place], [email or web address] weeks [place], tel: gestation of [phone] [id number] , [place]. tel: [phone] Danika [place] Supervision of Fe-2 Doe In Womens elderly 6-201 [facility], multigravida, 8 700 PO Box first Medical 1522, trimesterPap [facility], Smear Screening, Dr Jin EUSEBIO, CervixEncounter 120, , for suprvsn of [place], normal , [place], tel: first [id number] [phone] 196790 weeks gestation , [place]. of tel: [phone] Danika [place] Sav-2 Doe In Womens Follow-Up, 8- [facility]. Edilson COTO, Routine 6 700 PO Box Medical 1522, [place] [address] Trav, [facility], 120, , [facility] [place], tel:[phone] , [place]. tel: [phone] Danika [place] Apr-2 Doe Referring In Womens 1-201 [facility]. Provider: Edilson COTO, 6 700 [facility] PO Box Medical Doe L, 1522, [place] [address], [facility] [place], 120, [place] [id number], Billy [facility] 120, EUSEBIO, Billy, tel:[phone] [place], , [place]. [id number]. tel: tel: [phone] Danika [place] Mar-0 Doe In Womens 3-201 [facility]. Edilson COTO, 6 700 PO Box Medical 1522, [place] [address] Trav, [facility], 120, [id number], [place], [place], tel:[phone] , [place]. tel:[phone] Danika [place] History of Feb-0 Doe In Womens chlamydia 1- [facility], infection 6 700 PO Box Medical 15[address], [place] [address] Trav, [facility] [place], 120, [id number], [facility] [place], tel:[phone] , [place]. tel:[phone] Danika [place] Dec-2 Doe In Womens 1-201 [facility], 5 700 PO Box Medical 15[address], [place] [address], [facility] [place], 120, [id number], [facility] [place], tel:[phone] , [place]. tel: [phone] Danika [place] Encounter for Nov-2 Doe In Womens test, - [facility], result positive 5 700 PO Box Medical [address], [address], [facility] [place], 120, [id number], [facility] [place], tel:[phone] , [place]. tel: [phone] Danika [place] Richard-2 Kerr In Womens 9-201 [facility], 1 700 PO Box Medical 15[address], [address], [facility] [place], 120, [id number], [facility] [place], tel:[phone] , [place]. tel:[phone] Family History Family Member Diagnosis Age At [...] Authorization(s) [employer] - Medicaid [place] [id number] [employer] - Medicaid [place] [id number] [employer] - Medicaid [place] [id number] Social History Type Description Quantity Date Captured Unknown Vital Signs Date / Height Weight BMI Pulse Blood Temperature Respiratory Body Head BMI Time: Rate Pressure Rate Surface Circumference percentile Area Unknown Chief Complaint And Reason For Visit Unknown Chief Complaint And Reason For Visit Reason For Referral Reason For Referral Unknown Plan Of Care Date Type Action Status Appointment Flaco Odalis BOOKED Appointment Flaco Odalis BOOKED Appointment Flaco Odalis BOOKED Appointment Flaco Odalis BOOKED Appointment Flaco, Odalis BOOKED Appointment Flaco, Odalis BOOKED Appointment Flaco, Odalis BOOKED Appointment Flaco, Odalis BOOKED Appointment Flaco Odalis BOOKED Future Order: Radiology Order Ultrasound OB Follow-up ([id number]) Ordered Future Order: Radiology Order Biophysical Profile without NST Ordered ([id number]) Future Order: Radiology Order OB Detailed Complete Ultrasound Ordered ([id number]) Future Order: Radiology Order Biophysical Profile without NST Ordered ([id number]) Future Order: Radiology Order Biophysical Profile without NST Ordered ([id number]) Future Order: Lab Order Pap Smear With [...]
--- OUTSIDE RECORDS SUMMARY | 2017-11-10 06:43 | External Medical Summary | Continuity of Care Document ---
:1980 Author Organization [facility] Address [address] [place], [place] [address] Phone Support Name Relationship Address Phone Manuel Sam spouse [address] [facility] [phone] [place] [address] Allergies, Adverse Reactions, Alerts Substance Reaction Severity Status No Known Drug Allergies Unknown Active Medications Medication Instructions Dosage Effective Dates Status Comments (start - stop) azithromycin 500 mg take 1 tablet by oral 500 MG - Active tablet route every day for 3 days ONE DAILY take 1 by Oral route [...] damage, unsp 33 weeks gestation of - Encounter for test, result - positive History of chlamydia infection Active Procedures Procedure Date OB Visit No Charge Results Test Name Date and Time Measure Units Reference Range Abnormal Flag Comments Unknown Advance Directives Directive Yes / No Effective Date File Name Unknown Encounters Encounter Practice Location Reason(s) Diagnoses Date Provider Care Team Description For Visit Members Danika [place] Sep-1 Doe In Womens [place] [place], 8 700 PO Box Medical 1522, [facility], Jin Woodard, 120, [id number], [place], tel:[phone] , [place]. tel:[phone] Danika [place] Supervision of Sep-0 Doe In Womens elderly [place]ICA multigravida, 8 700 PO Box third Medical 1522, [facility], care for oth Jin Woodard, abnormality 120, [id number], and [place], [place] unsp33 weeks [place], tel:[phone] gestation of [phone] [id number] , [place]. tel:[phone] Danika [place] Supervision of Sep-0 Doe In Womens Ultrasound elderly [place], multigravida, 8 700 PO Box third Medical 1522, trimesterMaternal [facility], care for oth Jin Woodard, abnormality 120, [id number], and [place], [place] unsp33 weeks [place], tel:[phone] gestation of [phone] [phone] , [place]. tel:[phone] Danika [place] Left Breast Lump, Richard-2 Doe In Womens Axillary 1-201 [facility], TailSupervision 8 700 PO Box of elderly Medical 1522, multigravida, [facility], third Jin Woodard, trimesterEncounte 120, [id number], r for suprmichaeln of [place], [place] normal , [place], tel:[phone] third [phone] [id number] weeks gestation , [place]. of tel: [phone] Danika [place] Supervision of May-2 Doe In Womens elderly 2-201 [facility], multigravida, 8 700 PO Box second Medical 1522, trimesterEncounte [facility], r for suprvsn of Jin Woodard, normal , 120, [id number], second [place], [place] [id number] weeks [place], tel:[phone] gestation of [id number] 196790 , [place]. tel: [phone] Danika [place] Supervision of May-0 Doe In Womens elderly 8-201 [facility], multigravida, 8 700 PO Box second Medical 1522, [email or web address] weeks [facility], gestation of Jin Woodard, 120, , [place], [place], tel:[phone] , [place]. tel: [phone] Danika [place] Supervision of Apr-0 Doe In Womens elderly 5-201 [facility], multigravida, 8 700 PO Box second Medical 1522, [email or web address] weeks [facility], gestation of Jin Woodard, 120, [id number], [place], tel:[phone] , [place]. tel: [phone] Danika [place] Supervision of Apr-0 Doe In Womens Ultrasound elderly 5-201 [facility], multigravida, 8 700 PO Box second Medical 1522, [email or web address] weeks [facility], gestation of Jin Woodard, 120, [id number], [place], tel:[phone] , [place]. tel:[phone] Danika [place] Supervision of May-2 Doe In Womens elderly 7- [facility], multigravida, 8 700 PO Box second Medical 1522, [facility]Encounte [facility], [facility] for suprvsn of Jin Woodard, normal , 120, [id number], second [place], weeks [place], tel:[phone] gestation of [id number] 196790 , [place]. tel: [phone] Danika [place] Supervision of Fe-2 Doe In Womens elderly 6- [facility], multigravida, 8 700 PO Box first Medical 1522, trimesterPap [facility], Smear Screening, , [facility], CervixEncounter 120, , for suprvsn of [place], normal , [place], tel: first [id number] [phone] 196790 weeks gestation , [place]. of tel: [phone] Danika [place] Sav-2 Doe In Womens Follow-Up, [facility], Routine 6 700 PO Box Medical 1522, [place] Dr Trav, [facility], 120, , [facility] [place], tel:[phone] , [place]. tel: [phone] Danika [place] Apr-2 Doe Referring In Womens - [facility]. Provider: Health [facility], 6 700 Gale PO Box Medical Doe L, 1522, [place] [address], [facility], 120, [place] , [place] [address], EUSEBIO, Billy, tel:[phone] [place], , [place]. [id number]. tel: tel: [phone] Danika [place] Mar-0 Doe In Womens 3-201 [facility], 6 700 PO Box Medical 1522, [place] Dr Trav, [facility], 120, [id number], [place], tel:[phone] , [place]. tel: [phone] Danika [place] History of Feb-0 Doe In Womens chlamydia 1-201 [facility], infection 6 700 PO Box Medical 15[address], [place] [address] Trav, [facility] [place], 120, [id number], [facility] [place], tel:[phone] , [place]. tel:[phone] Danika [place] Dec-2 Doe In Womens 1-201 [facility], 5 700 PO Box Medical 1522, [place] [address] Trav, [facility] [place], 120, [id number], [facility] [place], tel:[phone] , [place]. tel:[phone] Danika [place] Encounter for Nov-2 Doe In Womens test, [facility], result positive 5 700 PO Box Medical 1522, [place] Dr Trav, [facility] [place], 120, [id number], [facility] [place], tel:[phone] , [place]. tel:[phone] Danika [place] Richard-2 Kerr In Womens 9-201 [facility], 1 700 PO Box Medical 1522, [place] [address] Trav, [facility] [place], 120, [id number], [facility] [place], tel:[phone] , [place]. tel:[phone] Family History Family Member Diagnosis Age At [...] Authorization(s) [employer] - Medicaid [place] [id number] [employer] - Medicaid [place] [id number] [employer] - Medicaid [place] [id number] Social History Type Description Quantity Date Captured Alcohol Use Details No Caffeine Use Details Unknown Tobacco Use Status Unknown Smoking Status Never smoker Vital Signs Date / Height Weight BMI Pulse Blood Temperature Respiratory Body Head BMI Time: Rate Pressure Rate Surface Circumference percentile Area 151.30 26.8 123/74 2018 lbs 0 mm[Hg] 4:03 kg/m PM eter (2) Chief Complaint And [...] Radiology Order OB Detailed Complete Ultrasound Ordered ([id number]) Future Order: Radiology Order Ultrasound OB Follow-up ([id number]) Ordered Future Order: Radiology Order Biophysical Profile without NST Ordered ([id number]) Future Order: Lab Order Pap Smear With [...]
--- OUTSIDE RECORDS SUMMARY | 2017-11-10 06:43 | External Medical Summary | Continuity of Care Document ---
:1980 Author Organization [facility] Address [address] [place], [place] [address] Phone Support Name Relationship Address Phone Manuel Sam spouse [address] [facility] [phone] [place] [address] Allergies, Adverse Reactions, Alerts Substance Reaction Severity [...] For Visit Members Danika [place] Supervision of 1 Doe In Womens elderly [place]. [facility] multigravida, 8 700 PO Box third Medical 1522, [facility], care for oth Jin Woodard, abnormality 120, [id number], and damage, [place], [place] unsp34 weeks [place], tel:[phone] gestation of [phone] [phone] , [place]. tel: [phone] Danika [place] Supervision of Sep-1 Doe In Womens Ultrasound elderly [facility], multigravida, 8 700 PO Box third Medical 1522, [facility], care for oth Jin Woodard, abnormality 120, [id number], and damage, [place], [place] unsp34 weeks [place], tel:[phone] gestation of [id number] , [place]. tel: [phone] Danika [place] Supervision of Sav-0 Doe In Womens elderly 9-201 [facility], multigravida, 8 700 PO Box third Medical 1522, trimesterMaternal [facility], care for oth Jin Woodard, abnormality 120, [id number], and damageBilly, [place] unsp33 weeks [place], tel:[phone] gestation of [id number] [phone] , [place]. tel: [phone] Danika [place] Supervision of Sav-0 Doe In Womens Ultrasound elderly 9-201 [facility], multigravida, 8 700 PO Box third Medical 1522, trimesterMaternal [facility], care for oth Jin Woodard, abnormality 120, [id number], and damageBilly, [place] unsp33 weeks [place], tel:[phone] gestation of [phone] , [place]. tel: [phone] Danika [place] Sep-0 Doe In Womens 3-201 [facility]. Edilson COTO, 8 700 PO Box Medical 1522, [facility], Jin Woodard, 120, [id number], [place], [place], tel:[phone] , [place]. tel: [phone] Danika [place] Left Breast Lump, Richard-2 Doe In Womens Axillary 1-201 [facility], TailSupervision 8 700 PO Box of [facility] Medical 1522, multigravi, [facility], [facility] Jin Woodard, trimesterEncounte 120, [id number], r for Marisa, [place] normal , [place], tel:[phone] third [id number] [phone] [id number] weeks gestation , [place]. of tel: [phone] Danika [place] Supervision of July-2 Doe In Womens elderly 2-201 [facility], multigravida, 8 700 PO Box second Medical 1522, trimesterEncounte [facility], r for suprvsn of Jin Woodard, normal , 120, [id number], second [place], [place] weeks [place], tel:[phone] gestation of [phone] [id number] , [place]. tel: [phone] Danika [place] Supervision of May-0 Doe In Womens elderly 8-201 [facility], multigravida, 8 700 PO Box second Medical 1522, [email or web address] weeks [facility], gestation of Jin Woodard, 120, , [place], [place], tel:[phone] , [place]. tel: [phone] Danika [place] Supervision of Apr-0 Doe In Womens elderly 5-201 [facility], multigravida, 8 700 PO Box second Medical 1522, [email or web address] weeks [facility], gestation of Jin Woodard, 120, , [place], [place], tel:[phone] , [place]. tel: [phone] Danika [place] Supervision of Apr-0 Doe In Womens Ultrasound elderly 5-201 [facility], multigravida, 8 700 PO Box second Medical 1522, [email or web address] weeks [facility], gestation of Jin Woodard, 120, , [place], [place], tel:[phone] , [place]. tel: [phone] Danika [place] Supervision of Mar-2 Doe In Womens elderly 7-201 [facility], multigravida, 8 700 PO Box second Medical 1522, trimesterEncounte [facility], r for suprvsn of Jin Woodard, normal , 120, , second [place], [place] [email or web address] weeks [place], tel:[phone] gestation of [id number] 196790 , [place]. tel: [phone] Danika [place] Supervision of Feb-2 Doe In Womens elderly 6-201 [facility], multigravida, 8 700 PO Box first Medical 1522, trimesterPap [facility], Smear Screening, Jin Woodard, CervixEncounter 120, , for suprvsn of [place], [place] normal , [place], tel:[phone] first [id number] [phone] 401589 weeks gestation , [place]. of tel: [phone] Danika [place] Sav-2 Doe In Womens Follow-Up, 8 [facility], Routine 6 700 PO Leal Medical 1522, [place] [address] Trav, [facility] [place], 120, [id number], [place], [facility], tel:+ [phone] , [place]. tel: [phone] Associates Billy Apr-2 Doe Referring In Womens 1-201 [facility]. Provider: Health [facility]ICA, 6 700 [facility]ale PO Box Medical Doe L, 1522, [address] [address], [facility] [place], 120, [place] [id number], Billy [facility] 120, [place], [place], tel: [phone] [place], , [place]. [id number]. tel: tel: [phone] Associates Billy Mar-0 Doe In Womens 3-201 [facility], 6 700 PO Leal Medical 1522, [place] [address], [facility], 120, [id number], [place], [place], tel: [phone] , [place]. tel: [phone] Associates Billy History of Feb-0 Doe In Womens chlamydia 1-201 [facility], infection 6 700 [facility] 1522, [address], [facility], 120, [id number], [place], [place], tel:[phone] , [place]. tel: [phone] Danika [place] Dec-2 Doe In Womens 1-201 [facility], 5 700 PO Leal Medical 1522, [address], [facility] [place], 120, [id number], [place], [place], tel: [phone] , [place]. tel: [phone] Danika [place] Encounter for Nov-2 Doe In Womens test, 5- [facility], result positive 5 700 PO Box Medical 1522, [address], [facility] [place], 120, [id number], [place], [place], tel:[phone] , [place]. tel: [phone] Danika [place] Richard-2 Kerr In Womens 9-201 [facility]. [facility], 1 700 PO [place] [id number], [address] Trav, [facility], 120, [id number], [place], [place], tel:[phone] , [place]. tel: [phone] Family History Family Member Diagnosis Age At [...] Authorization(s) [employer] - Medicaid [place] [id number] [employer] - Medicaid [place] [id number] [employer] - Medicaid MC [id number] Social History Type Description Quantity Date Captured Alcohol Use Details No Caffeine Use Details Unknown Tobacco Use Status Unknown Smoking Status Never smoker Vital Signs Date / Height Weight BMI Pulse Blood Temperature Respiratory Body Head BMI Time: Rate Pressure Rate Surface Circumference percentile Area 0 11:52 kg/m AM kofi (2) Chief Complaint And Reason For Visit [...] Radiology Order OB Detailed Complete Ultrasound Ordered ([id number]) Future Order: Radiology Order Biophysical Profile without NST Ordered ([id number]) Future Order: Radiology Order Ultrasound OB Follow-up ([id number]) Ordered Future Order: Radiology Order Biophysical Profile without NST Ordered ([id number]) Future Order: Lab Order Pap Smear With [...]
--- OUTSIDE RECORDS SUMMARY | 2017-11-10 06:43 | External Medical Summary | Continuity of Care Document ---
:1980 Author Organization [facility] Address [address] [place], [place] [id number] Phone Support Name Relationship Address Phone Manuel Sam spouse [address] [phone] [place] [address] Allergies, Adverse Reactions, Alerts Substance Reaction Severity Status No Known Drug Allergies Unknown Active Medications Medication Instructions Dosage Effective Dates Status Comments (start - stop) ONE DAILY take 1 by Oral route - Active (unknown strength) every day Problems Condition Effective Dates (start - stop) Clinical Status Follow-Up, Routine - Supervision of elderly multigravida, - first trimester Pap Smear Screening, Cervix - Encounter for suprvsn of normal - , first trimester 14 weeks gestation of - Encounter for test, result - positive History of chlamydia infection Active Procedures Procedure Date Pap Smear handling/transport Initial OB Visit No Charge - INDUSTRIAL [employer]IST Infct antign, chlamydia trac, ampl Neisseria Gonorrhea, Amplified DNA Results Test Name Date and Time Measure Units Reference Range Abnormal Flag Comments Panel Description: Pap Smear With HPV Reflex If ASCUS Document Pap Smear 15:00:00 See scanned report Panel Description: OBSTETRIC PANEL WHITE BLOOD CELL 5.3 Thousand/uL 3.8-10.8 N COUNT 15:46:00 RED BLOOD CELL 4.23 Million/uL 3.80-5.10 N COUNT 15:46:00 HEMOGLOBIN 12.9 g/dL 11.7-15.5 N 15:46:00 HEMATOCRIT 37.2 % 35.0-45.0 N 15:46:00 MCV 87.9 fL 80.0-100.0 N 15:46:00 MCH 30.5 pg 27.0-33.0 N 15:46:00 MCHC 34.7 g/dL 32.0-36.0 N 15:46:00 RDW 12.7 % 11.0-15.0 N 15:46:00 PLATELET COUNT 166 Thousand/uL 140-400 N 15:46:00 MPV 10.9 fL 7.5-12.5 N 15:46:00 ABSOLUTE 3959 cells/uL 3578-3132 N NEUTROPHILS 15:46:00 ABSOLUTE 1171 cells/uL 850-3900 N LYMPHOCYTES 15:46:00 ABSOLUTE 138 cells/uL 200-950 L MONOCYTES 15:46:00 ABSOLUTE 11 cells/uL 15-500 L EOSINOPHILS 15:46:00 ABSOLUTE 21 cells/uL 0-200 N BASOPHILS 15:46:00 NEUTROPHILS 74.7 % N 15:46:00 LYMPHOCYTES 22.1 % N 15:46:00 MONOCYTES 2.6 % N 15:46:00 EOSINOPHILS 0.2 % N 15:46:00 BASOPHILS 0.4 % N 15:46:00 ANTIBODY SCREEN, NO ANTIBODIES N RBC W/REFL ID, 15:46:00 DETECTED Reference range TITER AND AG No antibodies detected This assay is a screening test for the detection of red blood cell antibodies. The test is not to be used for pretransfusion screening or for the medical management of an alloimmunized . ABO GROUP O 15:46:00 RH TYPE RH(D) 15:46:00 POSITIVE RPR (DX) W/REFL NON-REACTIVE NON-REACTIV N TITER AND 15:46:00 E CONFIRMATORY TESTING HEPATITIS B NON-REACTIVE NON-REACTIV N SURFACE ANTIGEN 15:46:00 E RUBELLA ANTIBODY 5.18 index N Index (IGG) 15:46:00 Interpretation ----- <0.90 Not consistent with Immunity 0.90-0.99 Equivocal > or=1.00 Consistent with Immunity The presence of rubella IgG antibody suggests immunization or past or current infection withrubella virus.Test performed at [facility], [place] [id number] r: MARY GUERRA DO,MPH Panel Description: HIV 1/2 ANTIGEN/ANTIBODY,FOURTH GENERATION W/RFL HIV NON-REACTIVE NON-REACTIVE N HIV-1 antigen and HIV-1/HIV- 2 antibodies were AG/AB, 15:46:00 notdetected. There is no laboratory evidence of 4TH GEN HIVinfection. PLEASE NOTE: This information has been disclosed toyou from records whose confidentiality may beprotected by state law. If your state requires suchprotection, then the state law prohibits you frommaking any further disclosure of the informationwithout the specific written consent of the personto whom it pertains, or as otherwise permitted by law.A general authorization for the release of medical orother information is NOT sufficient for this purpose. For additional information please refer tohttp://education.YellowHammer/faq/VZB699(This link is being provided for informational/educational purposes only.) The performance of this assay has not been clinicallyvalidated in patients less than 2 years old. REPORT COMMENT:FASTING:NOTest performed at [place] [id number]: MARY GUERRA DO,MPH Panel Description: Bacteria identified in Urine by Culture CULTURE, URINE, SEE NOTE CULTURE, URINE, ROUTINE MICRO ROUTINE 16:00:00 NUMBER: [id number] TEST STATUS: FINAL SPECIMEN SOURCE: URINE, CLEAN CATCH SPECIMEN QUALITY: ADEQUATE RESULT: Multiple organisms present, each less than 10,000 CFU/mL. These organisms, commonly found on external and internal genitalia, are considered to be colonizers. No further testing performed.REPORT COMMENT:RFASTING:UNKNOWNTest performed at [facility] [id number] [place] [address]Gkqzwyqs: MARY GUERRA DO,MPH Panel Description: GC/CT Amplified Probe Chlamydia Trachomatis RNA, TMA 15:42:09 Negative Negative N Neisseria Gonorrhoeae RNA, TMA 15:42:09 Negative Negative N Advance Directives Directive Yes / No Effective Date File Name Unknown Encounters Encounter Practice Location Reason(s) Diagnoses Date Provider Care Team Description For Visit [facility] Supervision of Apr- [facility] In Wom[facility] elderly [address] Edilson COTO, multigravida, [address], first [place], [place], [facility] [id number], Smear Screening, , [facility] 120, tel:[phone] for suprvsn of [place], [id number] normal [place], , first [id number] , [place]. weeks gestation tel: of [phone] Danika Cervantes Sep- [facility] Follow-Up, 8- [facility]. Edilson COTO, Routine [address], [place], [place], [place] [id number], , [facility] 120, tel:[phone] [place] [address] [place], [id number] , [place]. tel: [phone] Danika Cervantes Jun-2 Doe Referring In Womens 1-201 [facility]. Provider: Edilson COTO, [address], Medical [facility] , [place], [place], [place] [id number], [facility] 120, [place] tel:[phone] [place] [address], [address] [place], [place], [id number] [place], , [place]. [id number]. tel: tel:[phone] Danika Cervantes May-0 Doe In Womens 3-[address] Edilson COTO, [address], [place], [place], [place] [id number], , [facility] 120, tel:[phone], [id number] , [place]. tel:[phone] Danika Cervantes History of Feb-0 [facility] chlamydia - [facility], infection 6 [address], [place], [place], [place] [id number], , [facility] 120, tel:[phone], [id number] , [place]. tel:[phone] Danika Cervantes Dec-2 [facility] 1- [facility], [address], [place], [place] [id number], , [facility] 120, tel:[phone], [id number] , [place]. tel: [phone] Danika Cervantes Encounter for Nov-2 [facility] In Womens test, [facility], result positive 5 [address], [place], [place], [place] [id number], , [facility] 120, tel:[phone], [id number] , [place]. tel: [phone] Danika Cervantes Richard-2 [facility] In Womens [facility], 1 [address], [place], [place], [place] [id number], , [facility] 120, tel:[phone] Billy[address], [id number] , [place]. tel: [phone] Family History Family Member Diagnosis Age At [...] Authorization(s) [employer] - [place] [id number] [employer] [place] [id number] [employer] - Medicaid [place] [id number] Social History Type Description Quantity Date Captured Alcohol Use Details No Caffeine Use Details Unknown 2 cups per day Tobacco Use Status Never smoked tobacco Smoking Status Never smoker Non-Smoking Tobacco Use : No Details Available : No Details Available Details Vital Signs Date / Height Weight BMI Pulse Blood Temperature Respiratory Body Head BMI Time: Rate Pressure Rate Surface Circumference percentile Area 138.50 24.5 132/89 -2018 lbs 3 mm[Hg] 3:06 kg/m PM eter (2) Chief Complaint And Reason For Visit Unknown Chief Complaint And Reason For Visit Reason For Referral Reason For Referral Unknown Plan Of Care Date Type Action Status Appointment Odalis Sam BOOKED Future Order: Lab Order Pap Smear With [...]
[2017-11-10] MEDS: LR 1,000 ML IV PRN ×2 (07:00→10:18)
[2017-11-10] MEDS ORDERED: NALOXONE 0.4 MG/ML INJECTION IVP PRN ×2 (08:26→10:36)
[2017-11-10] MEDS ORDERED: ONDANSETRON 4 MG/2 ML INJECTION IVP PRN ×2 (08:26→10:36)
[2017-11-10] MEDS ORDERED: DiphenhydrAMINE 50 MG/ML INJECTION IVP PRN ×2 (08:26→10:36)
[2017-11-10] MEDS ORDERED: ROPIVACAINE 1% 10MG/ML INJ 200 MG, SUFentanil 50 MCG in NS 100 ML EPI PRN (08:26)
--- NOTE | 2017-11-10 08:27 | Anesthesia Preoperative Report ---
Anesthesia Epidural/Spinal Rec - Date and Time Date: 11/10/17 Procedure: Labor Epidural Plan: Epidural - Vital Signs Vital Signs: Temperature 98.1 F 11/10/17 07:47 Pulse Rate 63 11/10/17 07:47 Respiratory Rate 16 11/10/17 07:47 Blood Pressure 117/82 11/10/17 07:47 Pulse Oximetry 99 11/10/17 07:47 /Para: P:4 - Medictaions & Allergies Inpatient Medications: Current Medications Acetaminophen (Tylenol) 500 - 1,000 mg PO Q4H PRN PRN Reason: Pain Al Hydroxide/Mg Hydroxide (Maalox Plus) 30 ml PO Q3H PRN PRN Reason: Indigestion Calcium Carbonate (Tums) 500 - 1,000 mg PO Q2H PRN PRN Reason: Indigestion Carboprost Tromethamine (Hemabate) 250 mcg IM O PRN PRN Reason: .Downtime Dextrose/Lactated Ringer's (Dextrose 5%-Lactated Ringers) 1,000 mls @ 125 mls/ hr IV .Q8H PRN PRN Reason: Labor Last Admin: 11/10/17 07:14 Dose: 125 mls/hr Lactated Ringer's (Lactated Ringers) 1,000 mls @ 999 mls/hr IV .Q1H1M PRN Last Admin: 11/10/17 07:00 Dose: 999 mls/hr Oxytocin (Pitocin Drip) 30 unit in 500 mls @ 2 mls/hr IV .Q24H PRN; Protocol PRN Reason: Induction/Augmentation Last Admin: 11/10/17 07:13 Dose: 2 mls/hr Lidocaine HCl (Xylocaine-Mpf 1% Vial) 0.2 mg ID O PRN PRN Reason: IV Start Methylergonovine Maleate (Methergine) 0.2 mg IM O PRN Misoprostol (Cytotec) 800 mcg W[place] ONCE PRN Sodium Chloride (Iv Flush) 10 - 80 ml IV PRN PRN PRN Reason: Flushing Allergies/Adverse Reactions: Allergies Allergy/AdvReac Type Severity Reaction Status Date / Time No Known Allergies Allergy Verified 10/24/17 12:53 - Home Medications Home Medications: Home Medications Medication Instructions Recorded Confirmed Type Pnv95/Ferrous Fumarate/FA 1 tab PO DAILY #0 tab 08/25/15 10/24/17 History [ Tablet] Docusate Calcium [Stool Softener] 240 mg PO DAILY #30 cap 09/11/15 Rx Hydrocodone/Acetaminophen ([place] 1 - 2 tab PO Q4H PRN #20 tab 09/11/15 Rx 5-325 Tablet) Ibuprofen 800 mg PO Q8H PRN #30 tab 09/11/15 Rx - Medical History Other History: Reports: Now - Surgical History Reproductive Surgery/Treatment: DENIES: Section Anesthesia Reactions: None Hx Family Anesthesia Reaction: No History of Motion Sickness: No - Social History Smoking Status: Never smoker Second Hand Exposure: No Substance Use Type: does not use Alcohol Intake Frequency: does not drink Hx Chewing Tobacco Use: No - Pertinent Findings Lab Data: CBC and BMP 11/10/17 06:58 EKG Rhythm: Normal Sinus Rhythm - Physical Exam Respiratory Exam: lungs clear Cardiovascular Exam: regular rate and rhythm - Airway Assessment Mallampati Score: II TMD: 3 Fingerbreadths Neck Extension: good Overall Assessment: no airway concerns - ASA ASA Score: 2 - Discussion Discussion: Discussed risks/options/alternatives of anesthesia and questions answered. Patient consents. Nursing pain assessment noted. Attestation Statement: Prior to the delivery of any anesthetic medication, I examined the patient, developed the plan, obtained the patient's consent and discussed the risk and benefits of the procedure with the patient/guardian.
[2017-11-10 10:36] VITALS: BMI 29.5
[2017-11-10] MEDS ORDERED: HYDROCODONE/APAP 5mg/325mg TABLET PO PRN (16:46)
[2017-11-10] MEDS ORDERED: HYDROCORTISONE 2.5% CREAM 30gm RECTALLY PRN (16:46)
[2017-11-10] MEDS ORDERED: DiphenhydrAMINE 25 MG CAPSULE PO PRN (16:46)
--- NOTE | 2017-11-10 17:35 | Labor and Delivery Note ---
DATE OF DELIVERY 11/10/2017 NARRATIVE Ms. Sam progressed very well in first stage of labor. She began to push with excellent effort at the complete and +2 presentation. heart rate dropped to about 90 during this time. She pushed again a further time without waiting for a contraction and began to deliver the head. There was a tight nuchal cord x 1 that was doubly clamped and cut and then the baby delivered with a further push. Baby was bulb suctioned on the perineum and further bulb suctioned on the abdomen. This is a liveborn male. Weight and Apgars have not yet been announced. He is in [id number] contact with mother. Placenta subsequently delivered spontaneously intact. It had a normal configuration and normal-appearing three-vessel cord. Perineum was intact. Total blood loss was approximately 200 mL. At the time of this dictation mother and baby are doing well. [facility]
[2017-11-10] MEDS: IBUPROFEN 800 MG TABLET PO SCH (19:00)
[2017-11-11] MEDS: IBUPROFEN 800 MG TABLET PO SCH ×3 (05:40→15:39)
[2017-11-11 07:40] VITALS: RESP 16
--- NOTE | 2017-11-11 08:21 | OB/GYN Progress Note ---
OB-PP Progress Note - General PPD1 Maternal Group B Strep: Negative Maternal Rh: positive Maternal Rubella Status: Immune - Subjective Date: 11/11/17 Lochia: Minimal Pain: controlled Voiding: voiding Nausea or Vomiting Present: No - Objective Vital Signs: Last Vital Signs Temp 97.7 F 11/11/17 05:45 Pulse 67 11/11/17 05:45 Resp 16 11/11/17 05:45 BP 114/76 11/11/17 05:45 Pulse Ox 98 11/11/17 05:45 Urine Output: good General: alert and oriented Abdomen: fundus firm, non-tender Extremities: non-tender Edema: none - Assessment Assessment: SP, - Plan Plan: routine care consider dismissal this evening
[2017-11-11] MEDS ORDERED: PRENATAL VITAMIN TABLET PO SCH (09:00)
[2017-11-11] MEDS ORDERED: DOCUSATE CALCIUM 240 MG CAPSULE PO SCH (09:00)
--- NOTE | 2017-11-11 09:23 | Anesthesia Postoperative Note ---
- Date and Time Date: 11/11/17 Time: 09:10 - Status Patient Participated in Evaluation: Patient Participated in Person Vital Signs: Temperature 97.7 F 11/11/17 05:45 Pulse Rate 67 11/11/17 05:45 Respiratory Rate 16 11/11/17 05:45 Blood Pressure 114/76 11/11/17 05:45 Pulse Oximetry 98 11/11/17 05:45 Respiratory Function: Airway Patent Cardiovascular Function: Regular Pulse EKG: Sinus Rhythm Mental Status: Alert and Oriented Pain Intensity: 0 Hydration: Taking PO Fluids Nausea/Vomiting: None Complications During Recover: None Apparent - Follow-Up Instructions Instructions: Per Surgeon
[2017-11-11 13:12] VITALS: O2SAT 99
[2017-11-11 17:08] VITALS: BP 121/89; PULSE 58; TEMP 98.5
== END 2017-11-11 18:22 | disposition home or self-care (01) | DRG 775 ==
LOC: MC 06:26
PROVIDERS: ADMIT Obstetrics & Gynecology; ATTEND Obstetrics & Gynecology